=== PATIENT | female | born 1940 | race Caucasian/White ===

== ENCOUNTER 2016-06-18 09:05 | Day surgery (SDC) | payer BC ==
[~2016-06-18] VITALS: Ht 142.2 cm; Wt 75.4 kg
[2016-06-18] MEDS ORDERED: NS 1000P @30 MLS/HR (KVO) IV SCH (09:30)
[2016-06-18] MEDS ORDERED: MULT1CHW70 (09:34)
[2016-06-18] MEDS ORDERED: FENO130C PO (09:34)
[2016-06-18] MEDS ORDERED: NIFE15TA PO (09:34)
[2016-06-18] MEDS ORDERED: ALPR0.5T3 PO (09:34)
[2016-06-18] MEDS ORDERED: SIMV40TA PO (09:34)
[2016-06-18] MEDS ORDERED: VITA400C28 (09:34)
[2016-06-18] MEDS ORDERED: LOSA100T3 PO (09:34)
[2016-06-18] MEDS ORDERED: GLIM2TAB PO (09:34)
[2016-06-18 09:35] VITALS: BP 198/93; PULSE 92; RESP 20; TEMP 98.1; O2SAT 97
[2016-06-18] MEDS ORDERED: diphenhydrAMINE HCL 50 MG CAP PO SCH (09:45)
[2016-06-18 10:04] LABS: HEMATOCRIT 38.9 % (35.0-46.0); MEAN CELL VOLUME 86.7 FL (80.0-100.0); MEAN CORPUSCULAR HEMOGLOBIN 28.3 PG (27.0-34.0); MEAN CORPUSCULAR HGB CONC 32.7 % (32.0-36.0); PLATELET COUNT 254 TH/MM3 (150-450); RED BLOOD COUNT 4.48 MIL/MM3 (4.00-5.30); RED CELL DISTRIBUTION WIDTH 14.6 % (11.6-17.2); WHITE BLOOD COUNT 11.6 TH/MM3 (4.0-11.0)
[2016-06-18] MEDS ORDERED: HEPARIN-NS/PF INJ 500 ML ONE (10:04)
[2016-06-18 10:09] LABS: APTT (PATIENT) 21.7 SEC (24.3-30.1)
[2016-06-18] MEDS ORDERED: IOHEXOL 350 MG/ML 50 ML BTL (for Cath Lab) OTHER ONE (10:11)
[2016-06-18 10:18] LABS: HEMO FLAGS AUTO DIFF; POTASSIUM 4.2 MEQ/L (3.5-5.1)
[2016-06-18] MEDS ORDERED: MIDAZOLAM HCL 2 MG/2 ML VIAL ONE (10:19)
[2016-06-18 10:40] LABS: BANDS 2 % (0-6); EOSINOPHILS 3 % (0-4); NEUTROPHIL # MANUAL DIFF 5.8 TH/MM3 (1.8-7.7); POLYS (SEG NEUTROPHILS) 48 % (16-70); WBC DIFF SAMPLE 100
[2016-06-18 10:41] LABS: PLATELET ESTIMATE SMEAR NORMAL (NORMAL); PLATELET MORPHOLOGY NORMAL (NORMAL); SCAN/DIFF FINAL DIFF MANUAL
[2016-06-18] MEDS ORDERED: MISC INFORMATION XX ONE (11:15)
[2016-06-18] MEDS ORDERED: ONDANSETRON HCL 4 MG/2 ML VIAL IV PRN (11:15)
[2016-06-18] MEDS ORDERED: ATROPINE SULFATE 1 MG/ML VIAL IV PRN (11:15)
--- NOTE | 2016-06-18 12:03 | EKG ---
Date Performed: 06/18/2016 Time Performed: 09:53:32 PTAGE: 75 years EKG: Sinus rhythm with 1st degree A-V block Left anterior fascicular block Possible anteroseptal infarct - age undeter mined Left ventricular hypertrophy Lateral ST-T changes may be due to hypertrophy and/or ischemia Abn ormal ECG PREVIOUS TRACING : 10/05/2000 07.30 DOCTOR: Gio Rowe Interpretating Date/Time 06/18/2016 12:02:45
--- NOTE | 2016-06-18 12:06 | MA ---
cc: DANIEL GRAYSON DATE: 06/18/2016 1940 PROCEDURE PERFORMED 1. Left heart catheterization. 2. Selective right and left coronary angiography. 3. Right common femoral artery angiography, selective. INDICATION Severe symptomatic aortic stenosis/preoperative evaluation. DESCRIPTION OF PROCEDURE Consent was signed. The patient was brought into the cardiac manager labor relations in a fasting state. The right groin was prepped and draped in sterile fashion. Using 1% lidocaine for local anesthesia a micropuncture kit, a 5-Moldovan sheath was inserted into the right common femoral artery. Right common femoral artery angiography was performed to confirm position of the sheath. Then selective right and left coronary angiography was performed with a JR-4 and a JL-4 diagnostic catheters. Angiography was taken in multiple views. An AL-1 over a straight angle wire was introduced into the left ventricle followed by pressure recordings and pullback. The patient tolerated the procedure well without complications. Estimated blood loss was less than 30 ccs. Total contrast used was 75 ccs. The right groin access site was closed with a Vascade closure device. RESULTS LEFT VENTRICLE The left ventricular pressure was 199/18 with an LVEDP of 24, aortic pressure was 156/84 with a mean of 115. There was a significant gradient upon pullback from the left ventricle to the aorta of at least 35 mmHg. ANGIOGRAPHY 1. Right coronary artery is dominant, minimal luminal irregularities throughout. Nonobstructive coronary artery disease, PDA patent. 2. Left main patent with nonobstructive coronary artery disease. 3. LAD is a transapical vessel, it has minimal luminal irregularities throughout, nonobstructive coronary artery disease. He has patent three diagonal vessels. 4. Left circumflex artery is patent with NIK III flow was giving off two obtuse marginal branches which are patent with nonobstructive coronary artery disease. 5. Ramus vessel is patent with nonobstructive coronary artery disease. CONCLUSION 1. Normal coronary arteries/nonobstructing coronary artery disease. 2. Severe aortic stenosis. RECOMMENDATIONS The patient will be consulted to CT surgery for AVR. Continue aggressive medical management for primary prevention of CAD. Post cath care. Will also order pulmonary function test. Daniel Grayson MD AIRLINE CAPTAIN/TLL /11:15 AM /11:52 AM LESLY
[2016-06-18] MEDS ORDERED: PAPAVERINE INJ 60 MG, NITROGLYCERIN INJ 100 MCG, DILTIAZEM INJ 100 MG in SODIUM CHLORID... IRRIGATION SCH (12:30)
--- NOTE | 2016-06-18 13:57 | RADRPT ---
EXAM DATE/TIME: 06/18/2016 12:51 [facility] COMPARISON: CT THORAX W/O CONTRAST, June 18, 2016, 13:25. INDICATIONS : Pre op for AVR. MEDICAL HISTORY : None. SURGICAL HISTORY : None. ENCOUNTER: Initial ACUITY: 1 day PAIN SCORE: 0/10 LOCATION: Bilateral upper chest FINDINGS: There is minimal atelectasis in the left midlung. No evidence of effusion. Cardiomediastinal contours are satisfactory for technique and slight rotation. CONCLUSION: Minimal left lung atelectasis Dilan Garcia MD on June 18, 2016 at 13:54 Board Certified Radiologist. This report was verified electronically.
--- NOTE | 2016-06-18 14:08 | RADRPT ---
EXAM DATE/TIME: 06/18/2016 13:25 [facility] COMPARISON: No previous studies available for comparison. INDICATIONS : Pre-op aortic vavle replacement. Aortic calcifications. RADIATION DOSE: 6.56 CTDIvol (mGy) MEDICAL HISTORY : Cardiovascular disease. Hypertension. Diabetes SURGICAL HISTORY : None. ENCOUNTER: Initial ACUITY: 1 day PAIN SCALE: 0/10 LOCATION: chest TECHNIQUE: Volumetric scanning of the chest was performed. Using automated exposure control and adjustment of t he mA and/or kV according to patient size, radiation dose was kept as low as reasonably achievable to obtain optimal diagnostic quality images. FINDINGS: The visualized pulmonary parenchyma is clear. There is no pleural effusion. The heart is normal in size. There is mild calcification of the aortic annulus and valve leaflets. Th e coronaries arise in their typical location. There is atherosclerotic plaquing within the coronary a rteries. The aortic root measures 2.8 cm in diameter. There is minimal atherosclerotic plaquing of th e arch. The descending thoracic aorta is normal in caliber. There is no significant hilar or mediastinal adenopathy. The graft the exam does demonstrate a 1.4 cm low-attenuation lesion in the dome of the liver. This is nonspecific in appearance by CT There are advanced degenerative changes throughout the upper thoracic spine. CONCLUSION: 1. There is calcification of the valve leaflets and aortic anulus. This is mild in severity. 2. Aortic root measures 2.8 cm. The coronaries arise in the typical location. Chris Velarde MD on June 18, 2016 at 14:04 Board Certified Radiologist. This report was verified electronically.
--- NOTE | 2016-06-18 16:44 | PD.CAR.PN ---
CVT Progress Note Subjective/Hospital Course: sts data discussed with pt RISK SCORES About the STS Risk Calculator Procedure: AV Replacement Risk of Mortality: 3.007% Morbidity or Mortality: 16.179% Long Length of Stay: 7.565% Short Length of Stay: 32.885% Permanent Stroke: 1.424% Prolonged Ventilation: 10.984% DSW Infection: 0.247% Renal Failure: 3.66% Reoperation: 7.373% Objective: Vital Signs Date Time Temp Pulse Resp B/P Pulse Ox O2 Delivery O2 Flow Rate FiO2 06/18/16 11:10 96 Room Air 06/18/16 09:35 98.1 92 20 198/93 97 Labs: Laboratory Tests Test 06/18/16 09:32 White Blood Count 11.6 TH/MM3 (4.0-11.0) Red Blood Count 4.48 MIL/MM3 (4.00-5.30) Hemoglobin 12.7 GM/DL (11.6-15.3) Hematocrit 38.9 % (35.0-46.0) Mean Corpuscular Volume 86.7 FL (80.0-100.0) Mean Corpuscular Hemoglobin 28.3 PG (27.0-34.0) Mean Corpuscular Hemoglobin 32.7 % Concent (32.0-36.0) Red Cell Distribution Width 14.6 % (11.6-17.2) Platelet Count 254 TH/MM3 (150-450) Mean Platelet Volume 9.2 FL (7.0-11.0) Neutrophils (%) (Auto) % (16.0-70.0) Lymphocytes (%) (Auto) % (9.0-44.0) Monocytes (%) (Auto) % (0.0-8.0) Eosinophils (%) (Auto) % (0.0-4.0) Basophils (%) (Auto) % (0.0-2.0) Neutrophils # (Auto) TH/MM3 (1.8-7.7) Lymphocytes # (Auto) TH/MM3 (1.0-4.8) Monocytes # (Auto) TH/MM3 (0-0.9) Eosinophils # (Auto) TH/MM3 (0-0.4) Basophils # (Auto) TH/MM3 (0-0.2) CBC Comment AUTO DIFF Differential Total Cells 100 Counted Neutrophils % (Manual) 48 % (16-70) Band Neutrophils % 2 % (0-6) Lymphocytes % 39 % (9-44) Monocytes % 8 % (0-8) Eosinophils % 3 % (0-4) Neutrophils # (Manual) 5.8 TH/MM3 (1.8-7.7) Differential Comment FINAL DIFF MANUAL Platelet Estimate NORMAL (NORMAL) Platelet Morphology Comment NORMAL (NORMAL) Red Cell Morphology Comment NORMAL (NORMAL) Prothrombin Time 11.0 SEC (9.8-11.6) Prothromb Time International 1.0 RATIO Ratio Activated Partial 21.7 SEC Thromboplast Time (24.3-30.1) Sodium Level 141 MEQ/L (136-145) Potassium Level 4.2 MEQ/L (3.5-5.1) Chloride Level 106 MEQ/L (98-107) Carbon Dioxide Level 27.0 MEQ/L (21.0-32.0) Anion Gap 8 MEQ/L (5-15) Blood Urea Nitrogen 17 MG/DL (7-18) Creatinine 0.67 MG/DL (0.50-1.00) Estimat Glomerular Filtration 86 ML/MIN (>89) Rate Random Glucose 171 MG/DL (74-106) Calcium Level 9.7 MG/DL (8.5-10.1) Result Diagram: 06/18/16 0932 06/18/16 0932 Verena Davis Jun 18, 2016 16:44
[2016-06-18 16:56] LABS: HEMOGLOBIN A1a 1.1 %; HEMOGLOBIN Ao 82.7 %; HEMOGLOBIN LA1C 2.4 %; HEMOGLOBIN P3 4.2 %
--- NOTE | 2016-06-19 08:25 | MB ---
cc: TIN IRIZARRY PEDRO KHANNA, SOHIT K. MD BARTHOLOMEW, BETH A. 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 Chilango Weiner, primary care physician Dr. Tin Irizarry with a history of aortic stenosis. She has been evaluated and followed for the last 15 years. Apparently her only symptoms have just been some chronic fatigue. They have been monitoring her valves. She was supposed to undergo some type of bladder treatment for a history of prior bladder cancer with a followup cystoscopy, but because of some tachycardia they wanted a cardiology revaluation and we get her echocardiogram which showed worsening aortic stenosis. Her valve area is 0.74 cm, peak gradient 80 mmHg with a mean gradient of 43 with some transvalvular velocity increased consistent with severe stenosis, moderately restricted leaflet motion. Also some moderate regurgitation, trivial to mild mitral regurgitation, some trivial tricuspid regurgitation, EF of 77%. The patient was brought in electively for heart catheterization with nonobstructive coronary artery disease and we were consulted to evaluate for aortic valve replacement. PAST MEDICAL HISTORY 1. Nonobstructive coronary artery disease. 2. Some very mild carotid disease with minimal bilateral plaquing by ultrasound completed 05/06/2016. 3. Diabetes mellitus, on oral medications. 4. Hyperlipidemia. 5. Hypertension. 6. Obesity with a BMI of 37. 7. History of bladder cancer diagnosed in 2003, followed by Dr. Win Viera. She has had multiple cystoscopies and some type of bladder instillation, some type of liquid treatment. 8. 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 Sibley. 9. Also suffers from insomnia. 10. Appendectomy. ALLERGIES SULFA. HOME MEDICATIONS 1. Losartan/Hydrochlorothiazide 100/12.5 p.o. daily. 2. Xanax 0.5 p.o. q.8 p.r.n. for anxiety. 3. Nifedipine 60 p.o. daily. 4. Fenofibrate 130 mg p.o. daily. 5. Simvastatin 40 p.o. q.h.s. 6. Glimepiride 2 mg p.o. daily. FAMILY HISTORY Mother still alive at age 95, she had a valve replacement at age 85 and a pacemaker. Father's history is unknown. SOCIAL HISTORY The patient , three children. 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 Quit smoking 40 years ago. No alcohol. REVIEW OF SYSTEMS GENERAL: No night sweats, fever, heat and cold intolerance. SKIN: No psoriasis, itching or hives. HEENT: No blurred vision, hearing loss. RESPIRATORY: No cough, shortness of breath. CARDIOVASCULAR: No chest pain. No paroxysmal nocturnal dyspnea. No orthopnea. GASTROINTESTINAL: No diarrhea, vomiting. GENITOURINARY: No burning, frequency, urgency. MILITARY EQUIPMENT SPECIALIST: No history of TIA, CVA, seizure disorder. ENDOCRINOLOGY: Positive for diabetes. PHYSICAL EXAMINATION VITAL SIGNS: Blood pressure 190/90, heart rate of 92, temperature 98.1, room air sat 96%. GENERAL: The patient is awake, alert, in no acute distress. HEENT: Head is normocephalic, atraumatic. Pupils equal and reactive. Oral mucosa pink, moist. NECK: Supple. No JVD. CARDIOVASCULAR: Heart sounds S1, S2. Regular rate and rhythm. No rubs, gallops. Positive for a 2/6 systolic ejection murmur. LUNGS: Clear to auscultation. No wheezes, rales or rhonchi. ABDOMEN: Obese, soft, nontender. EXTREMITIES: No cyanosis, clubbing or edema. LABORATORY WORK Hemoglobin 12, hematocrit of 38, white cell count of 11.6, platelet count of 254. Sodium 141, potassium 4.2, BUN of 17, creatinine 0.67, glucose random 171. Hemoglobin A1c is pending. INR 1.0. MRSA screen pending. IMAGING Chest CT shows some calcification in the valve leaflets and aortic annulus mild in severity. Aortic root measures 2.8. Coronaries arise in typical location. There is a 1.4 cm low-attentuation lesion in the dome of the liver nonspecific in appearance by CT. IMPRESSION This is a very pleasant 75-year-old patient of Dr. Chilango Weiner, history of aortic stenosis valve area of 0.74, currently a asymptomatic. However, the patient was turned down for repeat bladder surgery in regards to her worsening aortic stenosis. PLAN Procedures, alternatives and risks have been discussed with the patient in regards to aortic valve replacement. Her CT has been evaluated by Dr. Nathaniel Gilliland. Plan will be for possible mini-aortic valve replacement using a small sternotomy approach secondary to her history of right radical mastectomy. At this time the patient would like to speak with her son and discuss timing for surgery and then make decision upon when to consider her surgical treatment date. STS data has been discussed and documented in the electronic record, and we will await her return either per the office or notifying us for scheduling. Dictated by BROOKS Hernandez Nathaniel APODACA/BJF /4:48 PM /8:16 AM
--- NOTE | 2016-07-01 09:24 | RSPPFT ---
DATE OF PROCEDURE: 06/18/16 COMMENTS: Spirometry shows FEV1 at 43% of predicted, FVC at 38% indicating decreased FVC. No reversibility noted after use of bronchodilator. IMPRESSION: 1. No evidence of airways obstruction. 2. Patient does have decreased FVC which could imply restriction or could be due to obesity.
== END 2016-06-18 16:06 | disposition home or self-care (01) ==
LOC: HDOC 09:05 → HDIC 09:05 → HDOC 16:06
PROVIDERS: ATTEND Radiology Vascular & Interventional Radiology
DX: I35.0 Nonrheumatic aortic (valve) stenosis (principal); I25.10 Atherosclerotic heart disease of native coronary artery without angina pectoris; I10 Essential (primary) hypertension; E11.9 Type 2 diabetes mellitus without complications; E78.5 Hyperlipidemia, unspecified; E66.9 Obesity, unspecified; Z68.37 Body mass index [BMI] 37.0-37.9, adult; Z87.891 Personal history of nicotine dependence; Z88.2 Allergy status to sulfonamides; Z90.11 Acquired absence of right breast and nipple; Z01.818 Encounter for other preprocedural examination; Z85.51 Personal history of malignant neoplasm of bladder; Z79.01 Long term (current) use of anticoagulants
CPT/HCPCS: 71010; 71250; 80048; 83036; 85007; 85027; 85610; 85730; 87641; 93005; 93454; 94010; C1760; C1769; C1893; G0269; J1644; J2250; J3010; J7030; Q0163; Q9967

== ENCOUNTER 2016-09-19 09:28 | Observation (INO) | payer BC ==
[~2016-09-19] VITALS: Ht 142.2 cm; Wt 79.7 kg
[~2016-09-19 09:28] MED LIST: ALPR0.5T3 PO; FENO130C PO; GLIM2TAB PO; LOSA100T3 PO; MULT1CHW70; NIFE15TA PO; SIMV40TA PO; VITA400C28
[2016-09-19 09:31] VITALS: BP 144/87; PULSE 103; RESP 16; TEMP 97.9; O2SAT 96
[2016-09-19] MEDS ORDERED: NIFE60TA8 PO (09:52)
--- NOTE | 2016-09-19 10:12 | PD ---
HPI Chief Complaint: Abdominal Pain Time Seen by Provider: 09:56 Travel History International Travel<30 days: No Contact w/Intl Traveler<30days: No Traveled to known affect area: No History of Present Illness HPI The patient was seen and examined in the presence of the nurse. She complains of abdominal pain. Duration is 3 days. Severity is moderate. Location is right lower quadrant. She has no vomiting or diarrhea or fever. She had a bowel movement 2 days ago. She has had an appendectomy. She has history of bladder cancer. She is diabetic PFSH Past Medical History Anxiety: Yes Cancer: Yes (BLADDER) Cardiovascular Problems: Yes Diabetes: Yes Patient Takes Glucophage: No Hypertension: Yes Influenza Vaccination: No ?: Not Social History Alcohol Use: No Tobacco Use: No Substance Use: No Allergies-Medications (Allergen,Severity, Reaction): Coded Allergies: Sulfa (Verified Allergy, Unknown, 09/19/16) Reported Meds & Prescriptions Reported Meds & Active Scripts Active Reported Nifedipine ER 24 HR (Nifedipine) 60 Mg Tab 1 Tab PO DAILY Vitamin D (Cholecalciferol) 400 Unit Cap Simvastatin 40 Mg Tab 40 Mg PO HS Losartan-Hydrochlorothiazide 100-12.5 Mg Tab 1 Tab PO DAILY Glimepiride 2 Mg Tab 2 Mg PO DAILY Take with breakfast or first main meal Fenofibrate Micronized 130 Mg Cap 130 Mg PO DAILY Alprazolam 0.5 Mg Tab 0.5 Mg PO Q8H PRN Review of Systems General / Constitutional: No: Fever Eyes: No: Visual changes HENT: No: Headaches Cardiovascular: No: Chest Pain or Discomfort Respiratory: No: Shortness of Breath Gastrointestinal: Positive: Abdominal Pain Genitourinary: No: Dysuria Musculoskeletal: No: Pain Skin: No Rash Neurologic: No: Weakness Psychiatric: No: Depression Endocrine: No: Polydipsia Hematologic/Lymphatic: No: Easy Bruising Physical Exam Narrative GENERAL: Well-nourished, well-developed patient with right lower quadrant pain. SKIN: Focused skin assessment reveals no rash and nodules. Skin is Warm and dry. HEAD: Atraumatic. Normocephalic. EYES: Pupils equal and round. No scleral icterus. No injection or drainage. ENT: No nasal bleeding or discharge. Mucous membranes pink and moist. NECK: Trachea midline. No JVD. CARDIOVASCULAR: Regular rate and rhythm. No murmur appreciated. RESPIRATORY: No accessory muscle use. Clear to auscultation. Breath sounds equal bilaterally. GASTROINTESTINAL: Abdomen soft, right lower quadrant is tender but no rebound or guarding, nondistended. Hepatic and splenic margins not palpable. MUSCULOSKELETAL: No obvious deformities. No clubbing. No cyanosis. No edema. NEUROLOGICAL: Awake and alert. No obvious cranial nerve deficits. Motor grossly within normal limits. Normal speech. PSYCHIATRIC: Appropriate mood and affect; insight and judgment normal. Data Data Last Documented VS Vital Signs Date Time Temp Pulse Resp B/P Pulse Ox O2 Delivery O2 Flow Rate FiO2 09/19/16 10:33 96 16 178/68 97 Room Air 09/19/16 09:31 97.9 Orders Complete Blood Count With Diff (09/19/16 10:04) Comprehensive Metabolic Panel (09/19/16 10:04) Lipase (09/19/16 10:04) Prothrombin Time / Inr (Pt) (09/19/16 10:04) Act Partial Throm Time (Ptt) (09/19/16 10:04) Urinalysis - C+S If Indicated (09/19/16 10:04) Ondansetron Inj (Zofran Inj) (09/19/16 10:15) Sodium Chloride 0.9% Flush (Ns Flush) (09/19/16 10:15) Morphine Inj (Morphine Inj) (09/19/16 10:30) Ct Abd/Pel W/O Iv Contrast (09/19/16 ) Urinary Catheter Insert/Apply (09/19/16 11:04) Admit Order (Ed Use Only) (09/19/16 12:04) Admit Order (Ed Use Only) (09/19/16 12:07) Labs Laboratory Tests Test 09/19/16 09/19/16 10:00 10:20 Urine Collection Type CLEAN CATCH Urine Color YELLOW Urine Turbidity SLIGHT Urine pH 5.5 Urine Specific [place] 1.021 Urine Protein NEG mg/dL Urine Glucose (UA) NEG mg/dL Urine Ketones NEG mg/dL Urine Occult Blood NEG Urine Nitrite NEG Urine Bilirubin NEG Urine Leukocyte Esterase NEG Urine WBC 3-5 /hpf Urine Squamous Epithelial > 8 /hpf Cells Urine Bacteria OCC /hpf Microscopic Urinalysis Comment CULT NOT INDICATED Urine Collection Time 10:00 White Blood Count 10.3 TH/MM3 Red Blood Count 4.37 MIL/MM3 Hemoglobin 12.5 GM/DL Hematocrit 37.3 % Mean Corpuscular Volume 85.5 FL Mean Corpuscular Hemoglobin 28.7 PG Mean Corpuscular Hemoglobin 33.6 % Concent Red Cell Distribution Width 13.3 % Platelet Count 287 TH/MM3 Mean Platelet Volume 7.9 FL Neutrophils (%) (Auto) 63.4 % Lymphocytes (%) (Auto) 20.4 % Monocytes (%) (Auto) 9.5 % Eosinophils (%) (Auto) 3.1 % Basophils (%) (Auto) 3.6 % Neutrophils # (Auto) 6.5 TH/MM3 Lymphocytes # (Auto) 2.1 TH/MM3 Monocytes # (Auto) 1.0 TH/MM3 Eosinophils # (Auto) 0.3 TH/MM3 Basophils # (Auto) 0.4 TH/MM3 CBC Comment DIFF FINAL Differential Comment Prothrombin Time 11.1 SEC Prothromb Time International 1.0 RATIO Ratio Activated Partial 30.4 SEC Thromboplast Time Sodium Level 138 MEQ/L Potassium Level 3.4 MEQ/L Chloride Level 102 MEQ/L Carbon Dioxide Level 21.9 MEQ/L Anion Gap 14 MEQ/L Blood Urea Nitrogen 67 MG/DL Creatinine 3.30 MG/DL Estimat Glomerular Filtration 14 ML/MIN Rate Random Glucose 119 MG/DL Calcium Level 9.5 MG/DL Total Bilirubin 0.5 MG/DL Aspartate Amino Transf 29 U/L (AST/SGOT) Alanine Aminotransferase 30 U/L (ALT/SGPT) Alkaline Phosphatase 79 U/L Total Protein 8.2 GM/DL Albumin 3.7 GM/DL Lipase 220 U/L [facility] Medical Decision Making Medical Screen Exam Complete: Yes Emergency Medical Condition: Yes Medical Record Reviewed: Yes Differential Diagnosis Colitis, ileus, obstruction Narrative Course I have reviewed the patient's electronic medical record. Patient was hospitalized in June 2016 and I reviewed her cardiac catheterization IV placed CBC is normal metabolic profile shows a new-onset of renal failure with creatinine of 3.3 LFT's are normal lipase is normal Urinalysis is clean CT of abdomen and pelvis shows some nonspecific right groin inflammatory changes of unclear significance. There are some other incidental findings as noted I gave her dose of IV morphine and IV Zofran for symptom relief Urinary catheter was placed prior to CT which revealed urinary retention. 1400 cc of yellow urine was drained Did give the patient some relief and may explain her abdominal pain However there is no hydronephrosis to blame the renal failure on. I discussed with hospitalist. She is admitted for new onset of renal failure and also urinary retention without hydronephrosis. Diagnosis Primary Impression: Renal failure Qualified Code: N17.9 - Acute renal failure, unspecified acute renal failure type Additional Impression: Acute urinary retention Admitting Information Admitting Physician Requests: Admit Jose E Mai MD Sep 19, 2016 10:12
[2016-09-19] MEDS ORDERED: ONDANSETRON HCL 4 MG/2 ML VIAL IVP ONE (10:15)
[2016-09-19] MEDS ORDERED: SODIUM CHLORIDE 0.9% FLUSH 10 ML FLUSH IV FLUSH PRN ×2 (10:15→12:30)
[2016-09-19] MEDS ORDERED: MORPHINE SULFATE 4 MG/ML INJ IV PUSH ONE (10:15)
[2016-09-19 10:28] LABS: AUTOMATED NEUTROPHIL # 6.5 TH/MM3 (1.8-7.7); BASOPHIL # 0.4 TH/MM3 (0-0.2); BASOPHIL % 3.6 % (0.0-2.0); EOSINOPHIL # 0.3 TH/MM3 (0-0.4); EOSINOPHIL % 3.1 % (0.0-4.0); HEMATOCRIT 37.3 % (35.0-46.0); HEMO FLAGS DIFF FINAL; LYMPH % 20.4 % (9.0-44.0); LYMPHOCYTE # 2.1 TH/MM3 (1.0-4.8); MEAN CELL VOLUME 85.5 FL (80.0-100.0); MEAN CORPUSCULAR HEMOGLOBIN 28.7 PG (27.0-34.0); MEAN CORPUSCULAR HGB CONC 33.6 % (32.0-36.0); MONO % 9.5 % (0.0-8.0); NEUT % 63.4 % (16.0-70.0); PLATELET COUNT 287 TH/MM3 (150-450); RED BLOOD COUNT 4.37 MIL/MM3 (4.00-5.30); RED CELL DISTRIBUTION WIDTH 13.3 % (11.6-17.2); WHITE BLOOD COUNT 10.3 TH/MM3 (4.0-11.0)
[2016-09-19] MEDS ORDERED: MORPHINE SULFATE 8 MG/ML INJ IV PUSH ONE (10:30)
[2016-09-19 10:33] VITALS: BP 178/68; PULSE 96; RESP 16; O2SAT 97
[2016-09-19 10:33] LABS: BLOOD, URINE NEG (NEG); GLUCOSE,URINE NEG (NEG); KETONE, URINE NEG (NEG); NITRITE,URINE NEG (NEG); PH, URINE 5.5 (5.0-8.5)
[2016-09-19 10:38] LABS: METHOD OF COLLECTION CLEAN CATCH; URINE COLOR YELLOW (YELLW/STRAW)
[2016-09-19 10:39] LABS: CHLORIDE 102 MEQ/L (98-107); POTASSIUM 3.4 MEQ/L (3.5-5.1); SODIUM (NA) 138 MEQ/L (136-145)
[2016-09-19 10:39] LABS: BACTERIA, URINE OCC /hpf; COMMENT (UR) CULT NOT INDICATED; CULTURE IF INDICATED CULT NOT INDICATED; SQUAMOUS EPITHELIAL CELL URINE > 8 /hpf (0-5)
[2016-09-19 10:43] LABS: ANION GAP 14 MEQ/L (5-15); BICARBONATE 21.9 MEQ/L (21.0-32.0); BLOOD UREA NITROGEN 67 MG/DL (7-18)
[2016-09-19 10:44] LABS: APTT (PATIENT) 30.4 SEC (24.3-30.1); PROTHROMBIN TIME - PATIENT 11.1 SEC (9.8-11.6)
[2016-09-19 10:46] LABS: ALT (GPT) 30 U/L (10-53); AST (GOT) 29 U/L (15-37); GLOMERULAR FILTRATION RATE 14 ML/MIN (>89)
[2016-09-19 10:48] LABS: TOTAL BILIRUBIN ADULT 0.5 MG/DL (0.2-1.0)
[2016-09-19 10:49] LABS: ALKALINE PHOSPHATASE 79 U/L (45-117)
--- NOTE | 2016-09-19 11:39 | RADRPT ---
EXAM DATE/TIME: 09/19/2016 11:12 [facility] COMPARISON: No previous studies available for comparison. INDICATIONS : Right lower quadrant pain x days. ORAL CONTRAST: No oral contrast ingested. RADIATION DOSE: 18.06 CTDIvol (mGy) MEDICAL HISTORY : Carcinoma, bladder. Diabetes mellitus type 2. Hypertension. SURGICAL HISTORY : Appendectomy. ENCOUNTER: Initial ACUITY: 3 days PAIN SCALE: 9/10 LOCATION: Right lower quadrant TECHNIQUE: Volumetric scanning of the abdomen and pelvis was performed. Using automated exposure control and ad justment of the mA and/or kV according to patient size, radiation dose was kept as low as reasonably achievable to obtain optimal diagnostic quality images. DICOM format image data is available electro nically for review and comparison. The lack of IV contrast limits the diagnosis for certain organ pat hology. FINDINGS: LOWER LUNGS: The visualized lower lungs are clear. LIVER: Homogeneous density without lesion. There is diffuse fatty infiltration throughout the liver. There is no dilation of the biliary tree. No calcified gallstones. SPLEEN: Normal size without lesion. PANCREAS: Within normal limits. KIDNEYS: Normal in size and shape. There is no mass, stone, or hydronephrosis. Bilateral extrarenal pelves. T here is a benign cyst along the mid to lower pole left kidney measuring 4.8 cm. ADRENAL GLANDS: Within normal limits. VASCULAR: There is no aortic aneurysm. Atherosclerotic changes. BOWEL/MESENTERY: The stomach, small bowel, and colon demonstrate no acute abnormality. There is no free intraperitone al air or fluid. Scattered diverticulosis throughout the colon. No definite inflammatory changes are seen. ABDOMINAL WALL: Within normal limits. RETROPERITONEUM: There is no lymphadenopathy. BLADDER: Nichols catheter in the bladder. The bladder is decompressed. REPRODUCTIVE: Within normal limits. INGUINAL: There is no lymphadenopathy or hernia. There is a nonspecific soft tissue changes in the right groin. MUSCULOSKELETAL: Within normal limits for patient age. CONCLUSION: 1. Diffuse fatty infiltration of the liver. 2. Benign left renal cyst measuring 4.8 cm. 3. Diffuse diverticulosis of the entire colon. 4. Nonspecific soft tissue or inflammatory changes in the subcutaneous soft tissues of the right groi n. 5. No calcified renal stones or hydronephrosis. Bilateral extrarenal pelves. Maninder Martel MD on September 19, 2016 at 11:31 Board Certified Radiologist. This report was verified electronically.
[2016-09-19] MEDS ORDERED: SENNOSIDES 8.6 MG TAB PO PRN (12:30)
[2016-09-19] MEDS ORDERED: LACTULOSE SYRUP 20 GM/30 ML CUP PO PRN (12:30)
[2016-09-19] MEDS ORDERED: BISACODYL 10 MG SUPP RECTAL PRN (12:30)
[2016-09-19] MEDS ORDERED: ONDANSETRON HCL 4 MG/2 ML VIAL IVP PRN (12:30)
[2016-09-19] MEDS ORDERED: NALOXONE HCL 0.4 MG/ML AMP IV PRN (12:30)
[2016-09-19] MEDS ORDERED: POTASSIUM CHLORIDE 20 MEQ CONTROLLED RELEASE TAB PO SCH (12:30)
[2016-09-19] MEDS ORDERED: MAGNESIUM HYDROXIDE SUSP 30 ML CUP PO PRN (12:30)
[2016-09-19] MEDS: SODIUM CHLOR 0.9% 1000 ML INJ 1,000 ML IV SCH ×2 (13:05→22:34)
[2016-09-19] MEDS: HEPARIN SODIUM - SQ 10,000 UNITS/ML VIAL SQ SCH ×2 (13:08→22:33)
[2016-09-19 13:11] VITALS: BP 108/56; PULSE 92; RESP 18; O2SAT 95
[2016-09-19 15:03] VITALS: BP 111/67; PULSE 91; RESP 20; TEMP 97.3; O2SAT 94
[2016-09-19 16:00] VITALS: BP 140/65; PULSE 85; RESP 20; TEMP 97.3; O2SAT 94
--- NOTE | 2016-09-19 16:45 | PD.CONS ---
[facility] Service Nephrology Consult Requested By Reason for Consult Acute renal failure Primary Care Physician Yanelis Irizarry M.D. History of Present Illness This is a very plesant 76 y/o female patient. She came in for evaluation of right sided abdominal pain that had been worsening for 3 days. It began to radiate around the front of her abdomen. PMH listed below includes HTN, severe , bladder CA and is followed by urology. She tried Tylenol, antacids, and laxatives prior to coming to the ER, denies use of NSAIDs for pain relief. Her admission labs were abnormal for the following: creatinine 3.3, BUN 67, and K 3.3. She had a Nichols placed and approximately 1400 ml urine was returned. 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 Her UA is benign aside from squamous epithelial cells. She has IVF infusing, reportedly lost her appetite due to pain and fluid intake was not optimal. We were consulted for renal management. (Yesy Mcneill) Review of Systems Constitutional: DENIES: Fatigue Cardiovascular: DENIES: Chest pain, Dyspnea on Exertion, Lower Extremity Edema Gastrointestinal: COMPLAINS OF: Abdominal pain, DENIES: Nausea, Vomiting, Anorexia Genitourinary: DENIES: Urinary frequency, Urinary incontinence, Urgency, Dysuria Musculoskeletal: DENIES: Joint pain (Yesy Mcneill) Past Family Social History Allergies: Coded Allergies: Sulfa (Verified Allergy, Unknown, 09/19/16) Past Medical History HTN Hyperlipidemia Hx bladder Cancer DM II severe insomnia Past Surgical History appendectomy multiple cystoscopies with bladder biopsy Reported Medications Nifedipine ER 24 HR (Nifedipine) 60 Mg Tab 1 Tab PO DAILY Vitamin D (Cholecalciferol) 400 Unit Cap Simvastatin 40 Mg Tab 40 Mg PO HS Losartan-Hydrochlorothiazide 100-12.5 Mg Tab 1 Tab PO DAILY Glimepiride 2 Mg Tab 2 Mg PO DAILY Take with breakfast or first main meal Fenofibrate Micronized 130 Mg Cap 130 Mg PO DAILY Alprazolam 0.5 Mg Tab 0.5 Mg PO Q8H PRN Active Ordered Medications Current Medications Medications (Trade) Dose Ordered Sig/Milagros Route Start Time Stop Time Status Last Admin (NS 1000 ml Inj) 1,000 ml @ 100 mls/hr Q10H IV 09/19/16 12:24 09/19/16 13:05 (NS Flush) 2 ml UNSCH PRN IV FLUSH 09/19/16 12:30 (NS Flush) 2 ml BID IV FLUSH 09/19/16 21:00 (Zofran Inj) 4 mg Q6H PRN IVP 09/19/16 12:30 (Heparin Inj) 5,000 units DAILY@11,23 SQ 09/19/16 12:30 09/19/16 13:08 (Narcan Inj) 0.4 mg UNSCH PRN IV 09/19/16 12:30 (Michelle-Colace) 1 tab BID PO 09/19/16 21:00 (Milk Of Magnesia Liq) 30 ml Q12H PRN PO 09/19/16 12:30 (Senokot) 17.2 mg Q12H PRN PO 09/19/16 12:30 (Dulcolax Supp) 10 mg DAILY PRN RECTAL 09/19/16 12:30 (Lactulose Liq) 30 ml DAILY PRN PO 09/19/16 12:30 (KCl) 20 meq Q12HR PO 09/19/16 12:30 09/19/16 13:06 Family History No hx of renal disorders Social History , lives with no smoking hx, denies ETOH use ambulates and is independent with ADLs 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 Skin is Warm and dry. HEAD: Atraumatic. Normocephalic. EYES: Pupils equal and round. No scleral icterus. No injection or drainage. ENT: No nasal bleeding or discharge. Mucous membranes pink and moist. NECK: Trachea midline. No JVD. CARDIOVASCULAR: Regular rate and rhythm. II/ systolic murmur. No edema to lower extremities. RESPIRATORY: No accessory muscle use. Clear to auscultation. Breath sounds equal bilaterally. GASTROINTESTINAL: Abdomen soft, right lower quadrant is tender but no rebound or guarding, nondistended. Hepatic and splenic margins not palpable. MUSCULOSKELETAL: No obvious deformities. No clubbing. No cyanosis. No edema. NEUROLOGICAL: Awake and alert. No obvious cranial nerve deficits. Motor grossly within normal limits. Normal speech. PSYCHIATRIC: Appropriate mood and affect; insight and judgment normal. Laboratory Laboratory Tests Test 09/19/16 09/19/16 10:00 10:20 Urine Collection Type CLEAN CATCH Urine Color YELLOW Urine Turbidity SLIGHT Urine pH 5.5 Urine Specific [place] 1.021 Urine Protein NEG Urine Glucose (UA) NEG Urine Ketones NEG Urine Occult Blood NEG Urine Nitrite NEG Urine Bilirubin NEG Urine Leukocyte Esterase NEG Urine WBC 3-5 Urine Squamous Epithelial > 8 Cells Urine Bacteria OCC Microscopic Urinalysis Comment CULT NOT INDICATED Urine Collection Time 10:00 White Blood Count 10.3 Red Blood Count 4.37 Hemoglobin 12.5 Hematocrit 37.3 Mean Corpuscular Volume 85.5 Mean Corpuscular Hemoglobin 28.7 Mean Corpuscular Hemoglobin 33.6 Concent Red Cell Distribution Width 13.3 Platelet Count 287 Mean Platelet Volume 7.9 Neutrophils (%) (Auto) 63.4 Lymphocytes (%) (Auto) 20.4 Monocytes (%) (Auto) 9.5 Eosinophils (%) (Auto) 3.1 Basophils (%) (Auto) 3.6 Neutrophils # (Auto) 6.5 Lymphocytes # (Auto) 2.1 Monocytes # (Auto) 1.0 Eosinophils # (Auto) 0.3 Basophils # (Auto) 0.4 CBC Comment DIFF FINAL Differential Comment Prothrombin Time 11.1 Prothromb Time International 1.0 Ratio Activated Partial 30.4 Thromboplast Time Sodium Level 138 Potassium Level 3.4 Chloride Level 102 Carbon Dioxide Level 21.9 Anion Gap 14 Blood Urea Nitrogen 67 Creatinine 3.30 Estimat Glomerular Filtration 14 Rate Random Glucose 119 Calcium Level 9.5 Total Bilirubin 0.5 Aspartate Amino Transf 29 (AST/SGOT) Alanine Aminotransferase 30 (ALT/SGPT) Alkaline Phosphatase 79 Total Protein 8.2 Albumin 3.7 Lipase 220 (Yesy Mcneill) Result Diagram: 09/19/16 1020 09/19/16 1020 Imaging Last 72 hours Impressions Abdomen/Pelvis CT 09/19/16 0000 Signed Impressions: Service Date/Time: Monday, September 19, 2016 11:12 - CONCLUSION: 1. Diffuse fatty infiltration of the liver. 2. Benign left renal cyst measuring 4.8 cm. 3. Diffuse diverticulosis of the entire colon. 4. Nonspecific soft tissue or inflammatory changes in the subcutaneous soft tissues of the right groin. 5. No calcified renal stones or hydronephrosis. Bilateral extrarenal pelves. Maninder Martel MD (Yesy Mcneill) Assessment and Plan Problem List: (1) Renal failure Plan: In june her creatinine was 0.67, GFR 86 SAJI from obstructive uropathy/urinary retention imaging does not show hydronephrosis K 3.3, replacement ordered, recheck tomorrow; daily replacement likely not needed tolerating oral fluids now but intake was suboptimal for several days; reduce IVF to 50 cc/hr until tomorrow then stop avoid nephrotoxic medications repeat renal panel in the morning (2) Acute urinary retention Plan: begin flomax voiding trial tomorrow, may need urology evaluation no bladder mass visualized on imaging (3) DM II (diabetes mellitus, type II), controlled Plan: monitor glucose goal 140-180 mg/dL (Yesy Mcneill) Assessment and Plan patient was seen and examined. SAJI likely due to urinary retention. Unclear why she developed urinary retention. Flomax not useful in a female. Expect renal function to improve. (Juan Miguel Yi MD) Problem Qualifiers (1) Renal failure: Qualified Code: N17.9 - Acute renal failure, unspecified acute renal failure type Yesy Mcneill Sep 19, 2016 16:45 Juan Miguel Yi MD Sep 19, 2016 17:31
[2016-09-19] MEDS ORDERED: TAMSULOSIN HCL 0.4 MG CAP PO SCH (17:00)
[2016-09-19 20:16] VITALS: BP 105/58; PULSE 85; RESP 16; TEMP 98.6; O2SAT 90
[2016-09-19] MEDS: DOCUSATE SODIUM 50 MG/SENNA 8.6 MG TAB PO SCH (22:32)
[2016-09-19] MEDS: SODIUM CHLORIDE 0.9% FLUSH 10 ML FLUSH IV FLUSH SCH (22:32)
[2016-09-20 01:13] VITALS: BP 112/64; PULSE 80; RESP 14; TEMP 98.6; O2SAT 91
[2016-09-20 06:32] LABS: AUTOMATED NEUTROPHIL # 4.3 TH/MM3 (1.8-7.7); BASOPHIL % 0.5 % (0.0-2.0); EOSINOPHIL # 0.4 TH/MM3 (0-0.4); EOSINOPHIL % 5.1 % (0.0-4.0); HEMATOCRIT 34.5 % (35.0-46.0); HEMO FLAGS DIFF FINAL; LYMPH % 27.7 % (9.0-44.0); LYMPHOCYTE # 2.1 TH/MM3 (1.0-4.8); MEAN CELL VOLUME 85.4 FL (80.0-100.0); MEAN CORPUSCULAR HEMOGLOBIN 28.5 PG (27.0-34.0); MEAN CORPUSCULAR HGB CONC 33.3 % (32.0-36.0); MONO % 9.6 % (0.0-8.0); NEUT % 57.1 % (16.0-70.0); PLATELET COUNT 267 TH/MM3 (150-450); RED BLOOD COUNT 4.04 MIL/MM3 (4.00-5.30); RED CELL DISTRIBUTION WIDTH 13.5 % (11.6-17.2); WHITE BLOOD COUNT 7.5 TH/MM3 (4.0-11.0)
[2016-09-20 06:45] LABS: POTASSIUM 3.5 MEQ/L (3.5-5.1)
[2016-09-20 06:52] LABS: BICARBONATE 27.2 MEQ/L (21.0-32.0)
[2016-09-20 08:00] VITALS: BP 142/71; PULSE 81; RESP 17; TEMP 98; O2SAT 95
[2016-09-20] MEDS: DOCUSATE SODIUM 50 MG/SENNA 8.6 MG TAB PO SCH ×2 (08:43→20:03)
[2016-09-20] MEDS: SODIUM CHLORIDE 0.9% FLUSH 10 ML FLUSH IV FLUSH SCH ×2 (09:00→20:03)
[2016-09-20] MEDS ORDERED: NIFEdipine 60 MG SUSTAINED RELEASE TAB PO SCH (10:45)
[2016-09-20] MEDS: NIFEdipine 30 MG SUSTAINED RELEASE TAB PO SCH (11:33)
[2016-09-20] MEDS: HEPARIN SODIUM - SQ 10,000 UNITS/ML VIAL SQ SCH ×2 (11:33→21:38)
[2016-09-20] MEDS: FENOFIBRATE 145 MG TAB PO SCH (11:33)
[2016-09-20 12:00] VITALS: BP 132/78; PULSE 79; RESP 18; TEMP 98.1; O2SAT 96
--- NOTE | 2016-09-20 12:20 | HHI.HP ---
HPI Service [facility] Primary Care Physician Yanelis Irizarry M.D. Admission Diagnosis new onset renal failure, urinary retention without hydro,abd pain Diagnoses: Travel History International Travel<30 Days: No Contact w/Intl Traveler <30 Da: No Traveled to Known Affected Are: No History of Present Illness This is a very pleasant 76-year-old female patient of Dr. Irizarry. She also has seen Dr. Viera for bladder cancer and was subsequently referred to the [facility] in [facility]. She has a problem with aortic stenosis for which she is due to have open heart surgery. She came into the emergency department at [facility] last night with right abdominal pain that has been getting worse over the last 3 days. This was continuous nagging also radiating from the front of her abdomen to the other side. She also was in urinary retention. This was resolved after the insertion of a Nichols catheter. 1400 mL of urine were obtained. The catheter was left in. Patient denies any use of nonsteroidal anti-inflammatory drugs. She has brought appetite. Her arrival creatinine was 3.3. This morning creatinine came down to 1.4. This morning she was seen by the undersigned in room 8316. Her abdominal pain has still been resolved. She feels much better. She also go home. Already been seen by management internship Dr. Yi. Review of Systems Other 10 systems reviewed and negative except for the above Past Family Social History Past Medical History Diabetes Hypertension Aortic stenosis Bladder cancer Past Surgical History Appendicectomy Multiple cystoscopies Reported Medications Reported Meds & Active Scripts Active Reported Nifedipine ER 24 HR (Nifedipine) 60 Mg Tab 1 Tab PO DAILY Vitamin D (Cholecalciferol) 400 Unit Cap Simvastatin 40 Mg Tab 40 Mg PO HS Losartan-Hydrochlorothiazide 100-12.5 Mg Tab 1 Tab PO DAILY Glimepiride 2 Mg Tab 2 Mg PO DAILY Take with breakfast or first main meal Fenofibrate Micronized 130 Mg Cap 130 Mg PO DAILY Alprazolam 0.5 Mg Tab 0.5 Mg PO Q8H PRN Allergies: Coded Allergies: Sulfa (Verified Allergy, Unknown, 09/19/16) Family History Reviewed but noncontributory Social History smoking, no excessive alcohol, no illicit drug use Physical Exam Vital Signs Vital Signs Date Time Temp Pulse Resp B/P Pulse Ox O2 Delivery O2 Flow Rate FiO2 09/20/16 08:00 98.0 81 17 142/71 95 09/20/16 01:13 98.6 80 14 112/64 91 09/19/16 20:16 98.6 85 16 105/58 90 09/19/16 16:00 97.3 85 20 140/65 94 09/19/16 15:03 97.3 91 20 111/67 94 09/19/16 13:11 92 18 108/56 95 Room Air Physical Exam GENERAL: This is a pleasant, obese , well-developed patient, in no apparent distress. SKIN: No rashes, ecchymoses or lesions. Cool and dry. HEAD: Atraumatic. Normocephalic. No temporal or scalp tenderness. EYES: Pupils equal round and reactive. Extraocular motions intact. No scleral icterus. No injection or drainage. ENT: Nose without bleeding, purulent drainage or septal hematoma. Throat without erythema, tonsillar hypertrophy or exudate. Uvula midline. Airway patent. NECK: Trachea midline. No JVD or lymphadenopathy. Supple, nontender, no meningeal signs. CARDIOVASCULAR: Regular rate and rhythm without murmurs, gallops, or rubs. RESPIRATORY: Clear to auscultation. Breath sounds equal bilaterally. No wheezes , rales, or rhonchi. GASTROINTESTINAL: Abdomen soft, non-tender, nondistended. No hepato-splenomegaly , or palpable masses. No guarding. MUSCULOSKELETAL: Extremities without clubbing, cyanosis, but has bilateral ankle edema. NEUROLOGICAL: Awake and alert. Cranial nerves II through XII intact. Motor and sensory grossly within normal limits. Five out of 5 muscle strength in all muscle groups. Normal speech. Laboratory Laboratory Tests Test 09/20/16 06:03 White Blood Count 7.5 Red Blood Count 4.04 Hemoglobin 11.5 Hematocrit 34.5 Mean Corpuscular Volume 85.4 Mean Corpuscular Hemoglobin 28.5 Mean Corpuscular Hemoglobin 33.3 Concent Red Cell Distribution Width 13.5 Platelet Count 267 Mean Platelet Volume 7.8 Neutrophils (%) (Auto) 57.1 Lymphocytes (%) (Auto) 27.7 Monocytes (%) (Auto) 9.6 Eosinophils (%) (Auto) 5.1 Basophils (%) (Auto) 0.5 Neutrophils # (Auto) 4.3 Lymphocytes # (Auto) 2.1 Monocytes # (Auto) 0.7 Eosinophils # (Auto) 0.4 Basophils # (Auto) 0.0 CBC Comment DIFF FINAL Differential Comment Sodium Level 143 Potassium Level 3.5 Chloride Level 106 Carbon Dioxide Level 27.2 Anion Gap 10 Blood Urea Nitrogen 48 Creatinine 1.40 Estimat Glomerular Filtration 37 Rate Random Glucose 101 Calcium Level 9.1 Result Diagram: 09/20/16 0603 09/20/16 0603 Imaging Last Impressions Abdomen/Pelvis CT 09/19/16 0000 Signed Impressions: Service Date/Time: Monday, September 19, 2016 11:12 - CONCLUSION: 1. Diffuse fatty infiltration of the liver. 2. Benign left renal cyst measuring 4.8 cm. 3. Diffuse diverticulosis of the entire colon. 4. Nonspecific soft tissue or inflammatory changes in the subcutaneous soft tissues of the right groin. 5. No calcified renal stones or hydronephrosis. Bilateral extrarenal pelves. Maninder Martel MD Assessment and Plan Assessment and Plan Assessment Acute kidney injury, improving Urinary retention, improving Fatty liver Right groin inflammatory changes Diffuse diverticulosis Diabetes Obesity Management Continue Nichols catheter drainage Continue IV fluids at a lower rate Follow renal indices Discontinue Hyzaar Monitor for any hypoglycemia with the use of her Amaryl together with renal dysfunction Could be discharge in a.m. if stable with Nichols catheter in place To see her urologist as soon as possible as outpatient Discussed with patient Avoid any nephrotoxic agents Discussed with nurse 45 minutes Ricardo Lazar MD Sep 20, 2016 12:20
[2016-09-20] MEDS ORDERED: ALPRAZolam 0.5 MG TAB PO PRN (14:00)
[2016-09-20 16:00] VITALS: BP 122/65; PULSE 96; RESP 19; TEMP 98; O2SAT 96
[2016-09-20 20:22] VITALS: BP 133/65; PULSE 91; RESP 14; TEMP 99.4; O2SAT 93
[2016-09-20] MEDS: PRAVASTATIN SOD 80 MG TAB PO SCH (21:38)
[2016-09-20] MEDS: SODIUM CHLOR 0.9% 1000 ML INJ 1,000 ML IV SCH (22:14)
[2016-09-21 00:41] VITALS: BP 145/75; PULSE 91; RESP 16; TEMP 98.7; O2SAT 94
[2016-09-21] MEDS ORDERED: ACETAMINOPHEN/HYDROcodone 325 MG/5 MG TAB PO PRN (03:15)
[2016-09-21 04:16] LABS: C. DIFF EPI 027 PRESUMPTIVE NEGATIVE (NEGATIVE)
[2016-09-21 04:33] LABS: C. DIFF TOXIN PCR POSITIVE (NEGATIVE)
[2016-09-21] MEDS ORDERED: VANCOMYCIN 500 MG VIAL (FOR ORAL USE ONLY) PO ONE (05:45)
[2016-09-21 08:00] VITALS: BP 151/74; PULSE 78; RESP 18; TEMP 97.5; O2SAT 96
[2016-09-21] MEDS: SODIUM CHLORIDE 0.9% FLUSH 10 ML FLUSH IV FLUSH SCH ×2 (08:36→21:00)
[2016-09-21] MEDS: NIFEdipine 30 MG SUSTAINED RELEASE TAB PO SCH (08:36)
[2016-09-21] MEDS: FENOFIBRATE 145 MG TAB PO SCH (08:36)
[2016-09-21] MEDS: GLIMEPIRIDE 2 MG TAB PO SCH (08:36)
[2016-09-21] MEDS: VANCOMYCIN 500 MG VIAL (FOR ORAL USE ONLY) PO SCH ×4 (08:37→22:17)
[2016-09-21] MEDS: DOCUSATE SODIUM 50 MG/SENNA 8.6 MG TAB PO SCH ×2 (08:38→22:18)
--- NOTE | 2016-09-21 11:22 | HHI.NPPN ---
Subjective Interval History renal function has improved. Review of Systems General Constitutional: Fatigue Objective Data Data 09/20/16 09/21/16 19:00 07:00 Intake Total 1100 ml 1892 ml Output Total 600 ml 4800 ml Balance 500 ml -2908 ml Intake IV Total 1100 ml 1892 ml Output Urine Total 600 ml 4800 ml # Bowel Movements 4 Vital Signs Date Time Temp Pulse Resp B/P Pulse Ox O2 Delivery O2 Flow Rate FiO2 09/21/16 08:00 97.5 78 18 151/74 96 09/21/16 00:41 98.7 91 16 145/75 94 09/20/16 20:22 99.4 91 14 133/65 93 09/20/16 16:00 98.0 96 19 122/65 96 09/20/16 12:00 98.1 79 18 132/78 96 -: 09/20/16 0603 09/20/16 0603 Physical Exam General Appearance: Well Developed, No Acute Distress Ears & Nose Ears & Nose Exam: Tympanic Membranes Normal Pulmonary Resp Exam: Clear Bilaterally, Breath Sounds Equal Cardiology CV Exam: Regular, Normal Sinus Rhythm Gastrointestinal/Abdomen GI Exam: Soft, Non-Tender Musculoskeletal MS Exam: Joints Intact Extremeties Extremities Exam: No Edema Neurologic Neuro Exam: Moving All Extremities Assessment/Plan Problem List: (1) Renal failure Plan: In june her creatinine was 0.67, GFR 86 SAJI from obstructive uropathy/urinary retention Renal function has improved. (2) Acute urinary retention Plan: begin flomax voiding trial tomorrow, may need urology evaluation no bladder mass visualized on imaging (3) DM II (diabetes mellitus, type II), controlled Plan: monitor glucose goal 140-180 mg/dL Plan I will sign off at this time. She can be discharged from renal standpoint. Problem Qualifiers (1) Renal failure: Qualified Code: N17.9 - Acute renal failure, unspecified acute renal failure type Juan Miguel Yi MD Sep 21, 2016 11:22
[2016-09-21 12:00] VITALS: BP 143/78; PULSE 82; RESP 19; TEMP 98.1; O2SAT 95
[2016-09-21] MEDS: HEPARIN SODIUM - SQ 10,000 UNITS/ML VIAL SQ SCH ×2 (13:07→22:23)
[2016-09-21 16:00] VITALS: BP 152/75; PULSE 88; RESP 20; TEMP 98.5; O2SAT 95
--- NOTE | 2016-09-21 19:21 | HHI.PR ---
Subjective Interval History Alert, oriented, diarrhea is improving, C. difficile reported on her stool test , still has Nichols catheter in place Review of Systems Constitutional Constitutional Remarks No more abdominal pain, 10 systems reviewed otherwise negative Vitals/Results Intake & Output 09/20/16 09/20/16 09/21/16 14:59 22:59 06:59 Intake Total 2992 ml Output Total 600 ml 4800 ml Balance -600 ml 2992 ml -4800 ml Intake IV Total 2992 ml Output Urine Total 600 ml 4800 ml # Bowel Movements 4 Vital Signs Vital Signs Date Time Temp Pulse Resp B/P Pulse Ox O2 Delivery O2 Flow Rate FiO2 09/21/16 16:00 98.5 88 20 152/75 95 09/21/16 12:00 98.1 82 19 143/78 95 09/21/16 08:00 97.5 78 18 151/74 96 09/21/16 00:41 98.7 91 16 145/75 94 09/20/16 20:22 99.4 91 14 133/65 93 CBC/BMP: 09/20/16 0603 09/20/16 0603 Lab Results Laboratory Tests Test 09/20/16 22:30 Stool C. difficile Toxin (PCR) POSITIVE Stl C. difficile Toxin PRESUMPTIVE Epiderm 027 NEGATIVE Physical Exam General General Appearance: Well Developed, No Acute Distress Ears & Nose Ears & Nose Exam: Tympanic Membranes Normal Pulmonary Resp Exam: Clear Bilaterally, Breath Sounds Equal Cardiology CV Exam: Regular, Normal Sinus Rhythm Gastrointestinal/Abdomen GI Exam: Soft, Non-Tender Musculoskeletal MS Exam: Joints Intact Extremeties Extremities Exam: No Edema Neurologic Neuro Exam: Moving All Extremities Assessment/Plan Assessment/Plan Assessment Urinary retention, resolved with Nichols catheter Acute kidney injury, improving C. difficile colitis Diabetes Management Continue IV fluids Follow renal function Follow electrolytes and replace as needed Vancomycin 250 mg by mouth 4 times a day 2 weeks Flomax started by nephrology Discussed with patient Discussed with nurse DVT prophylaxis 35 minutes Ricardo Lazar MD Sep 21, 2016 19:21
[2016-09-21 20:00] VITALS: BP 133/81; PULSE 92; RESP 16; TEMP 99.4; O2SAT 94
[2016-09-21] MEDS: POTASSIUM CHLORIDE 10 MEQ CONTROLLED RELEASE TAB PO SCH (22:18)
[2016-09-21] MEDS: TEMAZEPAM 15 MG CAP PO PRN (22:18)
[2016-09-21] MEDS: PRAVASTATIN SOD 80 MG TAB PO SCH (22:18)
[2016-09-21] MEDS: SODIUM CHLOR 0.9% 1000 ML INJ 1,000 ML IV SCH (22:24)
[2016-09-22 00:29] VITALS: BP 129/78; PULSE 90; RESP 18; TEMP 99.6; O2SAT 95
[2016-09-22 04:15] VITALS: TEMP 98.5
[2016-09-22 05:48] LABS: AUTOMATED NEUTROPHIL # 3.7 TH/MM3 (1.8-7.7); BASOPHIL # 0.1 TH/MM3 (0-0.2); BASOPHIL % 0.8 % (0.0-2.0); EOSINOPHIL # 0.4 TH/MM3 (0-0.4); EOSINOPHIL % 5.5 % (0.0-4.0); HEMATOCRIT 34.6 % (35.0-46.0); HEMO FLAGS DIFF FINAL; LYMPH % 34.8 % (9.0-44.0); LYMPHOCYTE # 2.6 TH/MM3 (1.0-4.8); MEAN CELL VOLUME 86.2 FL (80.0-100.0); MEAN CORPUSCULAR HEMOGLOBIN 28.6 PG (27.0-34.0); MEAN CORPUSCULAR HGB CONC 33.1 % (32.0-36.0); MONO % 9.6 % (0.0-8.0); NEUT % 49.3 % (16.0-70.0); PLATELET COUNT 261 TH/MM3 (150-450); RED BLOOD COUNT 4.01 MIL/MM3 (4.00-5.30); RED CELL DISTRIBUTION WIDTH 13.2 % (11.6-17.2); WHITE BLOOD COUNT 7.5 TH/MM3 (4.0-11.0)
[2016-09-22 05:52] LABS: POTASSIUM 3.2 MEQ/L (3.5-5.1)
[2016-09-22 05:57] LABS: BICARBONATE 28.4 MEQ/L (21.0-32.0)
[2016-09-22 08:00] VITALS: BP 157/85; PULSE 91; RESP 16; TEMP 98; O2SAT 95
--- NOTE | 2016-09-22 08:13 | HHI.PR ---
Subjective History of Present Illness Patient diarrhea better d/w NEWTON Slater at bed side. have low potassium will replace. Review of Systems Constitutional Constitutional: Fatigue, Weakness Vitals/Results Intake & Output 09/21/16 09/21/16 09/22/16 15:00 23:00 07:00 Intake Total 1374 ml 701 ml Output Total 2100 ml 2250 ml 1650 ml Balance -726 ml -2250 ml -949 ml Intake IV Total 1374 ml 701 ml Output Urine Total 2100 ml 2250 ml 1650 ml # Bowel Movements 1 Vital Signs Vital Signs Date Time Temp Pulse Resp B/P Pulse Ox O2 Delivery O2 Flow Rate FiO2 09/22/16 04:15 98.5 09/22/16 00:29 99.6 90 18 129/78 95 09/21/16 20:00 99.4 92 16 133/81 94 09/21/16 16:00 98.5 88 20 152/75 95 09/21/16 12:00 98.1 82 19 143/78 95 CBC/BMP: 09/22/16 0436 09/22/16 0436 Lab Results Laboratory Tests Test 09/22/16 04:36 White Blood Count 7.5 TH/MM3 Red Blood Count 4.01 MIL/MM3 Hemoglobin 11.4 GM/DL Hematocrit 34.6 % Mean Corpuscular Volume 86.2 FL Mean Corpuscular Hemoglobin 28.6 PG Mean Corpuscular Hemoglobin 33.1 % Concent Red Cell Distribution Width 13.2 % Platelet Count 261 TH/MM3 Mean Platelet Volume 8.1 FL Neutrophils (%) (Auto) 49.3 % Lymphocytes (%) (Auto) 34.8 % Monocytes (%) (Auto) 9.6 % Eosinophils (%) (Auto) 5.5 % Basophils (%) (Auto) 0.8 % Neutrophils # (Auto) 3.7 TH/MM3 Lymphocytes # (Auto) 2.6 TH/MM3 Monocytes # (Auto) 0.7 TH/MM3 Eosinophils # (Auto) 0.4 TH/MM3 Basophils # (Auto) 0.1 TH/MM3 CBC Comment DIFF FINAL Differential Comment Sodium Level 145 MEQ/L Potassium Level 3.2 MEQ/L Chloride Level 109 MEQ/L Carbon Dioxide Level 28.4 MEQ/L Anion Gap 8 MEQ/L Blood Urea Nitrogen 10 MG/DL Creatinine 0.67 MG/DL Estimat Glomerular Filtration 86 ML/MIN Rate Random Glucose 97 MG/DL Calcium Level 8.8 MG/DL Physical Exam General General Appearance: Well Developed, No Acute Distress Ears & Nose Ears & Nose Exam: Tympanic Membranes Normal Throat Throat Exam: Oral Mucosa [place] & Moist, Oral Pharynx Normal Pulmonary Resp Exam: Clear Bilaterally, Breath Sounds Equal Cardiology CV Exam: Regular, Normal Sinus Rhythm Gastrointestinal/Abdomen GI Exam: Soft, Non-Tender Musculoskeletal MS Exam: Joints Intact Integumentary Skin Exam: Clear, Warm, Dry, Intact Extremeties Extremities Exam: No Edema Neurologic Neuro Exam: Alert, Awake, Moving All Extremities VTE Prophylaxis VTE Prophylaxis Device: SCDs PUD Prophylasis PUD Prophylaxis: Protonix Assessment/Plan Assessment/Plan Assessment and Plan. Urinary retention, resolved with Nichols catheter Acute kidney injury, improving C. difficile colitis..on vancomycin. Diabetes on ISS monitoring sugar. Hypokalemia will replace. Continue IV fluids Follow renal function Follow electrolytes and replace as needed Vancomycin 250 mg by mouth 4 times a day 2 weeks Flomax by nephrology Discussed with patient Discussed with nurse DVT prophylaxis Discussed Condition with: Patient Bhanu Bhat MD Sep 22, 2016 08:13
[2016-09-22] MEDS: DOCUSATE SODIUM 50 MG/SENNA 8.6 MG TAB PO SCH ×2 (09:07→22:00)
[2016-09-22] MEDS: NIFEdipine 30 MG SUSTAINED RELEASE TAB PO SCH (09:07)
[2016-09-22] MEDS: FENOFIBRATE 145 MG TAB PO SCH (09:07)
[2016-09-22] MEDS: GLIMEPIRIDE 2 MG TAB PO SCH (09:07)
[2016-09-22] MEDS: POTASSIUM CHLORIDE 10 MEQ CONTROLLED RELEASE TAB PO SCH ×2 (09:07→22:00)
[2016-09-22] MEDS: VANCOMYCIN 500 MG VIAL (FOR ORAL USE ONLY) PO SCH ×4 (09:09→22:00)
[2016-09-22] MEDS: SODIUM CHLORIDE 0.9% FLUSH 10 ML FLUSH IV FLUSH SCH ×2 (09:11→22:01)
[2016-09-22] MEDS: SODIUM CHLOR 0.9% 1000 ML INJ 1,000 ML IV SCH ×2 (09:11→13:13)
[2016-09-22] MEDS ORDERED: POTASSIUM CHLORIDE 10 MEQ CONTROLLED RELEASE TAB PO ONE (11:00)
[2016-09-22 12:00] VITALS: BP 164/82; PULSE 93; RESP 16; TEMP 97.1; O2SAT 96
[2016-09-22] MEDS: HEPARIN SODIUM - SQ 10,000 UNITS/ML VIAL SQ SCH (12:55)
[2016-09-22 16:00] VITALS: BP 147/74; PULSE 81; RESP 16; TEMP 99; O2SAT 96
[2016-09-22 20:00] VITALS: BP 158/84; PULSE 91; RESP 20; TEMP 97.1; O2SAT 96
[2016-09-22] MEDS: PRAVASTATIN SOD 80 MG TAB PO SCH (22:00)
[2016-09-22] MEDS: TEMAZEPAM 15 MG CAP PO PRN (22:07)
[2016-09-23] VITALS: BP 117/71; PULSE 79; RESP 20; TEMP 97; O2SAT 97
[2016-09-23] MEDS: HEPARIN SODIUM - SQ 10,000 UNITS/ML VIAL SQ SCH ×2 (00:01→11:00)
[2016-09-23 06:24] LABS: AUTOMATED NEUTROPHIL # 3.8 TH/MM3 (1.8-7.7); BASOPHIL % 0.6 % (0.0-2.0); EOSINOPHIL # 0.5 TH/MM3 (0-0.4); HEMATOCRIT 36.5 % (35.0-46.0); HEMO FLAGS DIFF FINAL; LYMPH % 34.3 % (9.0-44.0); LYMPHOCYTE # 2.6 TH/MM3 (1.0-4.8); MEAN CELL VOLUME 84.8 FL (80.0-100.0); MEAN CORPUSCULAR HEMOGLOBIN 28.9 PG (27.0-34.0); MEAN CORPUSCULAR HGB CONC 34.1 % (32.0-36.0); MONO % 9.3 % (0.0-8.0); NEUT % 48.8 % (16.0-70.0); PLATELET COUNT 311 TH/MM3 (150-450); RED BLOOD COUNT 4.31 MIL/MM3 (4.00-5.30); RED CELL DISTRIBUTION WIDTH 13.1 % (11.6-17.2); WHITE BLOOD COUNT 7.6 TH/MM3 (4.0-11.0)
[2016-09-23 06:36] LABS: CHLORIDE 109 MEQ/L (98-107); POTASSIUM 3.9 MEQ/L (3.5-5.1); SODIUM (NA) 143 MEQ/L (136-145)
[2016-09-23 06:41] LABS: ANION GAP 8 MEQ/L (5-15); BICARBONATE 25.7 MEQ/L (21.0-32.0); BLOOD UREA NITROGEN 11 MG/DL (7-18)
[2016-09-23 06:44] LABS: ALT (GPT) 26 U/L (10-53); AST (GOT) 25 U/L (15-37); GLOMERULAR FILTRATION RATE 87 ML/MIN (>89)
[2016-09-23 06:46] LABS: TOTAL BILIRUBIN ADULT 0.5 MG/DL (0.2-1.0)
[2016-09-23 06:47] LABS: ALKALINE PHOSPHATASE 70 U/L (45-117)
[2016-09-23 08:00] VITALS: BP 124/77; PULSE 93; RESP 20; TEMP 98; O2SAT 97
--- NOTE | 2016-09-23 08:32 | HHI.PR ---
Subjective History of Present Illness Patient diarrhea better d/w NEWTON Slater at bed side. have low potassium resolved.. ..ok to dc home today if ok with urology. Review of Systems Constitutional Constitutional: Fatigue, Weakness Vitals/Results Intake & Output 09/22/16 09/22/16 09/23/16 15:00 23:00 07:00 Intake Total 2450 ml 421 ml 1589 ml Output Total 2150 ml 400 ml 2750 ml Balance 300 ml 21 ml -1161 ml Intake Oral 2400 ml 1200 ml IV Total 50 ml 421 ml 389 ml Output Urine Total 2150 ml 400 ml 2750 ml # Bowel Movements 1 Vital Signs Vital Signs Date Time Temp Pulse Resp B/P Pulse Ox O2 Delivery O2 Flow Rate FiO2 09/23/16 04:00 Room Air 09/23/16 00:00 Room Air 09/23/16 00:00 97.0 79 20 117/71 97 09/22/16 20:00 Room Air 09/22/16 20:00 97.1 91 20 158/84 96 09/22/16 16:00 99.0 81 16 147/74 96 09/22/16 12:00 97.1 93 16 164/82 96 CBC/BMP: 09/23/16 0540 09/23/16 0540 Lab Results Laboratory Tests Test 09/23/16 05:40 White Blood Count 7.6 TH/MM3 Red Blood Count 4.31 MIL/MM3 Hemoglobin 12.5 GM/DL Hematocrit 36.5 % Mean Corpuscular Volume 84.8 FL Mean Corpuscular Hemoglobin 28.9 PG Mean Corpuscular Hemoglobin 34.1 % Concent Red Cell Distribution Width 13.1 % Platelet Count 311 TH/MM3 Mean Platelet Volume 7.5 FL Neutrophils (%) (Auto) 48.8 % Lymphocytes (%) (Auto) 34.3 % Monocytes (%) (Auto) 9.3 % Eosinophils (%) (Auto) 7.0 % Basophils (%) (Auto) 0.6 % Neutrophils # (Auto) 3.8 TH/MM3 Lymphocytes # (Auto) 2.6 TH/MM3 Monocytes # (Auto) 0.7 TH/MM3 Eosinophils # (Auto) 0.5 TH/MM3 Basophils # (Auto) 0.0 TH/MM3 CBC Comment DIFF FINAL Differential Comment Sodium Level 143 MEQ/L Potassium Level 3.9 MEQ/L Chloride Level 109 MEQ/L Carbon Dioxide Level 25.7 MEQ/L Anion Gap 8 MEQ/L Blood Urea Nitrogen 11 MG/DL Creatinine 0.66 MG/DL Estimat Glomerular Filtration 87 ML/MIN Rate Random Glucose 107 MG/DL Calcium Level 9.4 MG/DL Total Bilirubin 0.5 MG/DL Aspartate Amino Transf 25 U/L (AST/SGOT) Alanine Aminotransferase 26 U/L (ALT/SGPT) Alkaline Phosphatase 70 U/L Total Protein 7.3 GM/DL Albumin 3.2 GM/DL Physical Exam General General Appearance: Well Developed, No Acute Distress Ears & Nose Ears & Nose Exam: Tympanic Membranes Normal Throat Throat Exam: Oral Mucosa [place] & Moist, Oral Pharynx Normal Pulmonary Resp Exam: Clear Bilaterally, Breath Sounds Equal Cardiology CV Exam: Regular, Normal Sinus Rhythm Gastrointestinal/Abdomen GI Exam: Soft, Non-Tender Musculoskeletal MS Exam: Joints Intact Integumentary Skin Exam: Clear, Warm, Dry, Intact Extremeties Extremities Exam: No Edema Neurologic Neuro Exam: Alert, Awake, Moving All Extremities VTE Prophylaxis VTE Prophylaxis Device: SCDs PUD Prophylasis PUD Prophylaxis: Protonix Assessment/Plan Assessment/Plan Assessment and Plan. Urinary retention, resolved with Nichols catheter urology consulted for further evaluation and management. Acute kidney injury,resolved. C. difficile colitis..on vancomycin. Diabetes on ISS monitoring sugar. Hypokalemia resolved. Continue IV fluids Follow renal function Follow electrolytes and replace as needed Vancomycin 250 mg by mouth 4 times a day Flomax by nephrology Discussed with patient Discussed with nurse DVT prophylaxis ok to dc home today if ok with urology. f/u with pcp/ urology 1 week. Discussed Condition with: Patient Bhanu Bhat MD Sep 23, 2016 08:32
[2016-09-23] MEDS: DOCUSATE SODIUM 50 MG/SENNA 8.6 MG TAB PO SCH ×2 (09:00→10:17)
[2016-09-23] MEDS: SODIUM CHLORIDE 0.9% FLUSH 10 ML FLUSH IV FLUSH SCH (09:00)
[2016-09-23] MEDS ORDERED: VANC250C2 PO (09:30)
[2016-09-23] MEDS: VANCOMYCIN 500 MG VIAL (FOR ORAL USE ONLY) PO SCH ×2 (10:11→12:47)
[2016-09-23] MEDS: NIFEdipine 30 MG SUSTAINED RELEASE TAB PO SCH (10:16)
[2016-09-23] MEDS: FENOFIBRATE 145 MG TAB PO SCH (10:16)
[2016-09-23] MEDS: GLIMEPIRIDE 2 MG TAB PO SCH (10:17)
[2016-09-23] MEDS: POTASSIUM CHLORIDE 10 MEQ CONTROLLED RELEASE TAB PO SCH (10:17)
[2016-09-23 12:00] VITALS: BP 146/82; PULSE 93; RESP 20; TEMP 98; O2SAT 97
[2016-09-23] MEDS: SODIUM CHLOR 0.9% 1000 ML INJ 1,000 ML IV SCH (12:02)
--- NOTE | 2016-09-25 22:43 | MD ---
cc: BHANU RIBEIRO MD ADMISSION DATE: 09/19/2016 DISCHARGE DATE: 09/23/2016 Okay to discharge the patient home. CONDITION AT THE TIME OF DISCHARGE Satisfactory. ACTIVITY As tolerated. DIET Cardiac diet. ALLERGIES ALLERGY TO SULFA. DISCHARGE MEDICATIONS Include: 1. Vancomycin 250 milligrams p.o. q.i.d. for 7 days. 2. Xanax 0.5 milligrams p.o. q.8 hours p.r.n. anxiety. 3. Vitamin D 400 units p.o. daily. 4. Fenofibrate 130 milligrams p.o. daily. 5. Glimepiride 2 milligrams p.o. daily. 6. Losartan/hydrochlorothiazide 100/12.5 p.o. daily. 7. Nifedipine 60 milligrams p.o. daily. 8. Simvastatin 40 milligrams p.o. daily. FOLLOW UP The patient advised to follow up with PCP and GI in 1 week. ADMISSION DIAGNOSIS 1. Urinary retention resolved with Nichols catheter. 2. History of acute kidney injury. 3. C. Diff colitis. The patient was given vancomycin which is improved. 4. Diabetes was on insulin sliding scale. 5. Hypokalemia which resolved. HOSPITAL COURSE This is a 76-year-old female admitted with above-mentioned medical problems have acute renal failure/insufficiency which has resolved. Nephrology seen the patient. The patient had a urinary retention status post Nichols catheter and placement, urology consulted. The patient remained stable. No acute event happened. The patient discharged in satisfactory condition. Further details in the medical record. Bhanu Ribeiro MD EA/TRISTIAN /10:14 AM /10:34 PM
== END 2016-09-23 14:30 | disposition home or self-care (01) ==
LOC: PHED 09:28 → INTOOBSV 12:06 → PHEDA 12:06 → PH3B 14:23
PROVIDERS: ADMIT Specialist; ATTEND Family Medicine
DX: N17.9 Acute kidney failure, unspecified (principal); R33.9 Retention of urine, unspecified; K76.0 Fatty (change of) liver, not elsewhere classified; R10.31 Right lower quadrant pain; F41.9 Anxiety disorder, unspecified; Z85.51 Personal history of malignant neoplasm of bladder; A04.7 Enterocolitis due to Clostridium difficile; K57.90 Diverticulosis of intestine, part unspecified, without perforation or abscess without bleeding; G47.00 Insomnia, unspecified; E11.9 Type 2 diabetes mellitus without complications; E66.9 Obesity, unspecified; I10 Essential (primary) hypertension; Z79.899 Other long term (current) drug therapy; E87.6 Hypokalemia; Z79.84 Long term (current) use of oral hypoglycemic drugs
CPT/HCPCS: 51702; 74176; 80048; 80053; 81001; 83690; 83735; 85025; 85610; 85730; 87493; 96374; 96375; 99285; G0378; J1644; J2270; J2405; J7030

== ENCOUNTER 2016-09-27 06:22 | Emergency (ER) | payer BC ==
[~2016-09-27] VITALS: Ht 142.2 cm; Wt 73.0 kg
[~2016-09-27 06:22] MED LIST changes: -MULT1CHW70; -NIFE15TA PO; +NIFE60TA8 PO; +VANC250C2 PO
[2016-09-27 06:27] VITALS: BP 107/61; PULSE 106; RESP 18; TEMP 97.8; O2SAT 98
[2016-09-27 06:39] VITALS: BP 107/67; PULSE 106; RESP 18; TEMP 97.8; O2SAT 98
--- NOTE | 2016-09-27 06:40 | PD ---
HPI Chief Complaint: blood and urine Time Seen by Provider: 06:34 Travel History International Travel<30 days: No Contact w/Intl Traveler<30days: No Traveled to known affect area: No History of Present Illness HPI 76 year old female presents to the emergency department by private transportation for complaint of hematuria. Patient states she awakened at 5 AM and noticed blood in her urine. Patient has indwelling urinary catheter that was inserted on Thursday of this week after she was identified to have acute renal insufficiency/failure. Patient was discharged from the hospital on oral antibiotic and has an appointment with her urologist on Thursday. Patient does not report any fever chills nausea vomiting or abdominal pain. Patient is not noted any known trauma or issues with the catheter. Patient is remaining well- hydrated. Patient is concerned because she notes blood in the urine and she has not noticed any clearing of the pink tinged urine from her urinary catheter. Patient rates pain as 0/10 in intensity. Patient is followed by urologist Dr. Viera for possible bladder cancer. Patient also has history of hypertension and diabetes with good blood sugar control. [facility] Past Medical History Narrative Medical Diabetes bladder cancer breast cancer anxiety hypertension cholecystectomy right mastectomy no tobacco use no alcohol use; nursing notes reviewed Arthritis: No Autoimmune Disease: No Anxiety: Yes Heart Rhythm Problems: No Cancer: Yes (bladder right mastectomy) Cardiovascular Problems: Yes High Cholesterol: No Chemotherapy: No Chest Pain: No Congestive Heart Failure: No COPD: No Diabetes: Yes Endocrine: No Genitourinary: Yes Hypertension: Yes Immune Disorder: No Musculoskeletal: No Neurologic: No Psychiatric: No Reproductive: No Respiratory: No Radiation Therapy: No Sickle Cell Disease: No Sleep Apnea: No Thyroid Disease: No Past Surgical History Abdominal Surgery: Yes AICD: No Appendectomy: Yes Arteriovenous Shunt: No Cardiac Surgery: No Endocrine Surgery: No Eye Surgery: No Gynecologic Surgery: Yes (right mastectomy) Insulin Pump: No Joint Replacement: No Oral Surgery: No Pacemaker: No Thoracic Surgery: No Social History Alcohol Use: No Tobacco Use: No Substance Use: No Allergies-Medications (Allergen,Severity, Reaction): Coded Allergies: Sulfa (Verified Allergy, Unknown, 09/27/16) Reported Meds & Prescriptions Reported Meds & Active Scripts Active Vancomycin (Vancomycin HCl) 250 Mg Cap 250 Mg PO QID Reported Nifedipine ER 24 HR (Nifedipine) 60 Mg Tab 1 Tab PO DAILY Vitamin D (Cholecalciferol) 400 Unit Cap Simvastatin 40 Mg Tab 40 Mg PO HS Losartan-Hydrochlorothiazide 100-12.5 Mg Tab 1 Tab PO DAILY Glimepiride 2 Mg Tab 2 Mg PO DAILY Take with breakfast or first main meal Fenofibrate Micronized 130 Mg Cap 130 Mg PO DAILY Alprazolam 0.5 Mg Tab 0.5 Mg PO Q8H PRN Review of Systems Except as stated in HPI: all other systems reviewed are Neg General / Constitutional: No: Fever, Chills HENT: No: Congestion Cardiovascular: No: Chest Pain or Discomfort Respiratory: No: Shortness of Breath Gastrointestinal: No: Abdominal Pain Genitourinary: Positive: Hematuria, No: Decreased Urinary Output Musculoskeletal: No: Myalgias, Arthralgias Skin: No Rash Neurologic: No: Weakness Psychiatric: No: Anxiety Endocrine: No: Heat Intolerance Hematologic/Lymphatic: No: Easy Bruising Physical Exam Narrative GENERAL: Well-developed well-nourished female in no acute distress no respiratory distress SKIN: Warm and dry. HEAD: Normocephalic. EYES: No scleral icterus. No injection or drainage. NECK: Supple, trachea midline. No JVD or lymphadenopathy. CARDIOVASCULAR: Regular rate and rhythm without murmurs, gallops, or rubs. RESPIRATORY: Breath sounds equal bilaterally. No accessory muscle use. GASTROINTESTINAL: Abdomen soft, non-tender, nondistended. : Urinary catheter in place with scant amount of pink tinged urine and urinary catheter bag MUSCULOSKELETAL: No cyanosis, or edema. BACK: Nontender without obvious deformity. No CVA tenderness. Data Data Last Documented VS Vital Signs Date Time Temp Pulse Resp B/P Pulse Ox O2 Delivery O2 Flow Rate FiO2 09/27/16 06:41 18 09/27/16 06:39 97.8 106 107/67 98 Orders Complete Blood Count With Diff (09/27/16 06:34) Basic Metabolic Panel (Bmp) (09/27/16 06:34) Urinalysis - C+S If Indicated (09/27/16 06:34) MDM Medical Decision Making Medical Screen Exam Complete: Yes Emergency Medical Condition: Yes Medical Record Reviewed: Yes Differential Diagnosis Hematuria, UTI, bladder irritation, bladder mass, coagulopathy Narrative Course @ 0700 care signed over to oncoming MD Dr Stephanie Escobar,Reta Staley MD Sep 27, 2016 06:39
[2016-09-27 07:09] LABS: BASOPHIL % 0.5 % (0.0-2.0); EOSINOPHIL # 0.4 TH/MM3 (0-0.4); EOSINOPHIL % 4.2 % (0.0-4.0); HEMATOCRIT 38.6 % (35.0-46.0); HEMO FLAGS DIFF FINAL; LYMPHOCYTE # 2.5 TH/MM3 (1.0-4.8); MEAN CELL VOLUME 86.1 FL (80.0-100.0); MEAN CORPUSCULAR HEMOGLOBIN 29.4 PG (27.0-34.0); MEAN CORPUSCULAR HGB CONC 34.1 % (32.0-36.0); MONO % 9.8 % (0.0-8.0); NEUT % 60.5 % (16.0-70.0); PLATELET COUNT 368 TH/MM3 (150-450); RED BLOOD COUNT 4.48 MIL/MM3 (4.00-5.30); RED CELL DISTRIBUTION WIDTH 13.4 % (11.6-17.2); WHITE BLOOD COUNT 9.9 TH/MM3 (4.0-11.0)
[2016-09-27 07:10] LABS: BLOOD, URINE LARGE (NEG); GLUCOSE,URINE 1000 OR GREATER mg/dL (NEG); KETONE, URINE NEG (NEG); NITRITE,URINE NEG (NEG)
[2016-09-27 07:11] LABS: METHOD OF COLLECTION CATH; URINE COLOR PINK (YELLW/STRAW)
[2016-09-27 07:14] LABS: COMMENT (UR) CULT NOT INDICATED; CULTURE IF INDICATED CULT NOT INDICATED; RBC, URINE 15-19 /hpf (0-3); SQUAMOUS EPITHELIAL CELL URINE 0-5 /hpf (0-5); WBC, URINE 0-2 /hpf (0-5)
[2016-09-27 07:16] LABS: POTASSIUM 3.5 MEQ/L (3.5-5.1)
[2016-09-27 07:19] LABS: BICARBONATE 27.2 MEQ/L (21.0-32.0)
--- NOTE | 2016-09-27 08:07 | PD ---
Data Data Last Documented VS Vital Signs Date Time Temp Pulse Resp B/P Pulse Ox O2 Delivery O2 Flow Rate FiO2 09/27/16 06:41 18 09/27/16 06:39 97.8 106 107/67 98 Orders Complete Blood Count With Diff (09/27/16 06:34) Basic Metabolic Panel (Bmp) (09/27/16 06:34) Urinalysis - C+S If Indicated (09/27/16 06:34) Bladder/Catheter Irrigation (09/27/16 08:31) Labs Laboratory Tests Test 09/27/16 06:45 White Blood Count 9.9 TH/MM3 Red Blood Count 4.48 MIL/MM3 Hemoglobin 13.2 GM/DL Hematocrit 38.6 % Mean Corpuscular Volume 86.1 FL Mean Corpuscular Hemoglobin 29.4 PG Mean Corpuscular Hemoglobin 34.1 % Concent Red Cell Distribution Width 13.4 % Platelet Count 368 TH/MM3 Mean Platelet Volume 7.6 FL Neutrophils (%) (Auto) 60.5 % Lymphocytes (%) (Auto) 25.0 % Monocytes (%) (Auto) 9.8 % Eosinophils (%) (Auto) 4.2 % Basophils (%) (Auto) 0.5 % Neutrophils # (Auto) 6.0 TH/MM3 Lymphocytes # (Auto) 2.5 TH/MM3 Monocytes # (Auto) 1.0 TH/MM3 Eosinophils # (Auto) 0.4 TH/MM3 Basophils # (Auto) 0.0 TH/MM3 CBC Comment DIFF FINAL Differential Comment Urine Collection Type CATH Urine Color PINK Urine Turbidity CLEAR Urine pH 6.0 Urine Specific [place] 1.006 Urine Protein 100 mg/dL Urine Glucose (UA) 1000 OR GREATER mg/dL Urine Ketones NEG mg/dL Urine Occult Blood LARGE Urine Nitrite NEG Urine Bilirubin NEG Urine Leukocyte Esterase TRACE Urine RBC 15-19 /hpf Urine WBC 0-2 /hpf Urine Squamous Epithelial 0-5 /hpf Cells Microscopic Urinalysis Comment CULT NOT INDICATED Sodium Level 136 MEQ/L Potassium Level 3.5 MEQ/L Chloride Level 100 MEQ/L Carbon Dioxide Level 27.2 MEQ/L Anion Gap 9 MEQ/L Blood Urea Nitrogen 16 MG/DL Creatinine 0.84 MG/DL Estimat Glomerular Filtration 66 ML/MIN Rate Random Glucose 170 MG/DL Calcium Level 9.3 MG/DL [facility] Supervised Visit with OLY: No Narrative Course Patient care assumed from Dr. Reta Escobar at 0700 shift change. This is a 76- year-old female presents emergency department for evaluation of painless hematuria. Patient's urine is noninfected, labs are reassuring. Review of her records shows that last week she was here for urinary retention acute kidney injury and creatinine was 3 at that time and gradually resolved after Nichols catheter placement. I think that she does need follow-up as follows. Patient following Dr. Viera, has had 12 intracystic chemotherapy treatments, last cystoscopy was last year, she is to follow [facility] for consideration of a repeat cystoscopy. She is already established there was last seen on September 04. She feels well and has no abdominal pain. She stable for discharge, she has a follow-up appointment this coming Thursday (2 day) with her local urologist Dr. Viera. Leave Nichols catheter in until then. Discussed return to ED criteria Diagnosis Primary Impression: Hematuria Additional Instruction: Follow with Dr. Viera on Thursday as scheduled, follow with the [facility] on the as scheduled. Disposition: DISCHARGE HOME Condition: Stable Francisco Brown MD Sep 27, 2016 08:07
== END 2016-09-27 08:32 | disposition home or self-care (01) ==
LOC: PHED 06:22
DX: R31.9 Hematuria, unspecified (principal)
CPT/HCPCS: 51700; 80048; 81001; 85025

== ENCOUNTER 2016-10-17 15:22 | Emergency (ER) | payer BC ==
[~2016-10-17] VITALS: Ht 142.2 cm; Wt 72.4 kg
[2016-10-17 15:31] VITALS: BP 161/83; PULSE 128; RESP 16; TEMP 98.1; O2SAT 99
[2016-10-17] MEDS ORDERED: AMBI10TA PO (15:36)
[2016-10-17] MEDS ORDERED: LORazepam 0.5 MG TAB PO ONE (16:30)
--- NOTE | 2016-10-17 16:54 | PD ---
HPI Chief Complaint: Complaint Time Seen by Provider: 15:53 Travel History International Travel<30 days: No Contact w/Intl Traveler<30days: No Traveled to known affect area: No History of Present Illness HPI Is a 76 year-old woman presents to the emergency department complaining of blood in her Nichols catheter. She is a history of bladder cancer. She follows with the [facility], and up until recently followed with Dr. Viera but is now going to follow with Dr. Becerra locally. She developed urinary retention with SAJI and was admitted September 19. She had her Nichols catheter placed at that time. She had one episode of hematuria and was seen September 27. She was seen in the [facility] 5 days ago with cystoscopy. They attempted to remove the Nichols catheter but she was unable to void and so the Nichols catheter was replaced. She is due to follow-up with the again in one week. She presents to the emergency department today because she noticed bright red blood in her Nichols catheter bag starting this afternoon at about 1. Denies any trauma or pulling on the catheter. History Past Medical History Narrative Medical Hypertension on hyperlipidemia Severe aortic stenosis Bladder CA Diabetes Tetanus Vaccination: > 5 Years Influenza Vaccination: No Social History Alcohol Use: No Tobacco Use: No Allergies-Medications (Allergen,Severity, Reaction): Coded Allergies: Sulfa (Verified Allergy, Unknown, 10/17/16) Reported Meds & Prescriptions Reported Meds & Active Scripts Active Reported Ambien (Zolpidem Tartrate) 10 Mg Tab 10 Mg PO HS PRN Nifedipine ER 24 HR (Nifedipine) 60 Mg Tab 1 Tab PO DAILY Vitamin D (Cholecalciferol) 400 Unit Cap Simvastatin 40 Mg Tab 40 Mg PO HS Losartan-Hydrochlorothiazide 100-12.5 Mg Tab 1 Tab PO DAILY Glimepiride 2 Mg Tab 2 Mg PO DAILY Take with breakfast or first main meal Fenofibrate Micronized 130 Mg Cap 130 Mg PO DAILY Alprazolam 0.5 Mg Tab 0.5 Mg PO Q8H PRN Review of Systems Except as stated in HPI: all other systems reviewed are Neg Physical Exam Narrative GENERAL: Well-appearing 76-year-old woman, no acute distress. SKIN: Focused skin assessment warm/dry. CARDIOVASCULAR: Regular rate and rhythm. No murmur appreciated. RESPIRATORY: No accessory muscle use. Clear to auscultation. Breath sounds equal bilaterally. GASTROINTESTINAL: Abdomen soft, non-tender, nondistended. Hepatic and splenic margins not palpable. MUSCULOSKELETAL: No obvious deformities. No clubbing. No cyanosis. No edema. : Nichols catheter bag with dark red urine, and some blood clots. Data Data Last Documented VS Vital Signs Date Time Temp Pulse Resp B/P Pulse Ox O2 Delivery O2 Flow Rate FiO2 10/17/16 17:22 112 16 138/70 97 Room Air 10/17/16 15:31 98.1 Orders Lorazepam (Ativan) (10/17/16 16:30) MDM Medical Decision Making Medical Screen Exam Complete: Yes Emergency Medical Condition: Yes Differential Diagnosis Hematuria, malignancy, mass, infection, other Narrative Course Medical decision-making this is a 76 year-old woman who presents emergency Department with dark red blood in her Nichols catheter bag. She has follow-up with [facility] urology in less than a week. We'll irrigate out the bladder. I told her she may have some continued bleeding. She is not obstructed I encouraged her to drink plenty of fluids to keep urine production up, and follow-up with her urologist as planned. Irrigation cleared to a reddish pink after about a liter. I don't think she needs to be admitted for CBI at this time. I will have them return to the emergency Department if the urine is still dark red after 48 hours. She'll need a repeat hemoglobin at that point. She otherwise looks well. She has had cystoscopies already. She has follow-up scheduled at the [facility] and with the urologist next week. I think she is safe for discharge. Diagnosis Primary Impression: Hematuria Patient Instructions: General Instructions Additional Instructions: Drink plenty of fluids to keep urine production up. Return to the emergency department for any obstruction, fevers, abdominal pain, or any other new or worsening symptoms. Return to the emergency Department if her urine is still dark red in 48 hours. Follow-up with your urologist as scheduled. Med/Other Pt SpecificInfo: No Change to Meds Disposition: 01 DISCHARGE HOME Condition: Stable Gio Mistry MD Oct 17, 2016 16:54
[2016-10-17 17:22] VITALS: BP 138/70; PULSE 112; RESP 16; O2SAT 97
== END 2016-10-17 18:25 | disposition home or self-care (01) ==
LOC: PHED 15:22
DX: R31.9 Hematuria, unspecified (principal); I10 Essential (primary) hypertension; E11.9 Type 2 diabetes mellitus without complications; E78.5 Hyperlipidemia, unspecified; Z79.84 Long term (current) use of oral hypoglycemic drugs; Z86.79 Personal history of other diseases of the circulatory system; Z85.51 Personal history of malignant neoplasm of bladder
CPT/HCPCS: 99283

== ENCOUNTER 2016-10-22 19:18 | Emergency (ER) | payer BC ==
[~2016-10-22] VITALS: Ht 142.2 cm; Wt 73.0 kg
[~2016-10-22 19:18] MED LIST changes: +AMBI10TA PO; -VANC250C2 PO
[2016-10-22 19:22] VITALS: BP 132/74; PULSE 104; RESP 20; TEMP 97.4; O2SAT 98
--- NOTE | 2016-10-22 19:48 | PD ---
HPI Chief Complaint: Complaint Time Seen by Provider: 19:25 Travel History International Travel<30 days: No Contact w/Intl Traveler<30days: No Traveled to known affect area: No History of Present Illness HPI Patient is 76-year-old female with history of urinary retention followed by urologist and male as well as urologist closed by presents emergency department with inability to urinate or sensory are fully catheter was removed at the [facility] today. Patient states that no one has been able throughout why she intermittently retained urine. She denies any pain just feeling discomfort in the suprapubic region. Denies back pain. She states her last attempted urination was 30 minutes ago and just a few drops. She called her urologist to [facility] and recommended she come to the emergency department have a repeat Nichols catheter placed. She does have an appointment with her urologist to his local tomorrow. Denies any fever denies any nausea vomiting denies any diarrhea constipation or any opiate medication use. 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) Endocrine: No Gastrointestinal Disorders: No Genitourinary: Yes (URINARY RETERNTION) Heparin Induced Thrombocytopen: No Hypertension: Yes Immune Disorder: No Implanted Vascular Access Dvce: No Musculoskeletal: No Neurologic: No Psychiatric: No Reproductive: No Respiratory: No Radiation Therapy: No Sickle Cell Disease: No Sleep Apnea: No Thyroid Disease: No Tetanus Vaccination: Unknown Influenza Vaccination: No ?: Not : 4 Para: 3 Miscarriage: 3 Past Surgical History Abdominal Surgery: Yes AICD: No Appendectomy: Yes Arteriovenous Shunt: No Cardiac Surgery: No Endocrine Surgery: No Eye Surgery: No Genitourinary Surgery: Yes (CYSCOSOPY) Gynecologic Surgery: Yes (right mastectomy) Insulin Pump: No Joint Replacement: No Neurologic Surgery: No Oral Surgery: No Pacemaker: No Thoracic Surgery: No Other Surgery: No Social History Alcohol Use: No Tobacco Use: No (QUIT 1957) Substance Use: No Allergies-Medications (Allergen,Severity, Reaction): Coded Allergies: Sulfa (Verified Allergy, Unknown, 10/22/16) Reported Meds & Prescriptions Reported Meds & Active Scripts Active Reported Ambien (Zolpidem Tartrate) 10 Mg Tab 10 Mg PO HS PRN Nifedipine ER 24 HR (Nifedipine) 60 Mg Tab 1 Tab PO DAILY Vitamin D (Cholecalciferol) 400 Unit Cap Simvastatin 40 Mg Tab 40 Mg PO HS Losartan-Hydrochlorothiazide 100-12.5 Mg Tab 1 Tab PO DAILY Glimepiride 2 Mg Tab 2 Mg PO DAILY Take with breakfast or first main meal Fenofibrate Micronized 130 Mg Cap 130 Mg PO DAILY Alprazolam 0.5 Mg Tab 0.5 Mg PO Q8H PRN Review of Systems Except as stated in HPI: all other systems reviewed are Neg Physical Exam Narrative GENERAL: Well-developed well-nourished no obvious distress SKIN: Focused skin assessment warm/dry. HEAD: Atraumatic. Normocephalic. EYES: Pupils equal and round. No scleral icterus. No injection or drainage. ENT: No nasal bleeding or discharge. Mucous membranes pink and moist. NECK: Trachea midline. No JVD. CARDIOVASCULAR: Regular rate and rhythm. No murmur appreciated. RESPIRATORY: No accessory muscle use. Clear to auscultation. Breath sounds equal bilaterally. GASTROINTESTINAL: Abdomen soft, non-tender, nondistended. Hepatic and splenic margins not palpable. MUSCULOSKELETAL: No obvious deformities. No clubbing. No cyanosis. No edema. NEUROLOGICAL: Awake and alert. No obvious cranial nerve deficits. Motor grossly within normal limits. Normal speech. PSYCHIATRIC: Appropriate mood and affect; insight and judgment normal. Data Data Last Documented VS Vital Signs Date Time Temp Pulse Resp B/P Pulse Ox O2 Delivery O2 Flow Rate FiO2 10/22/16 21:00 90 18 104/55 95 Room Air 10/22/16 19:22 97.4 Orders Urinalysis - C+S If Indicated (10/22/16 19:33) Ed Poc Ultrasound (10/22/16 ) Urinary Catheter Management [id number] (10/22/16 19:48) Urine Culture (10/22/16 20:00) Labs Laboratory Tests Test 10/22/16 20:00 Urine Collection Type CATH Urine Color YELLOW Urine Turbidity CLEAR Urine pH 5.5 Urine Specific [place] 1.020 Urine Protein TRACE mg/dL Urine Glucose (UA) NEG mg/dL Urine Ketones NEG mg/dL Urine Occult Blood LARGE Urine Nitrite NEG Urine Bilirubin NEG Urine Leukocyte Esterase MOD Urine RBC 4-9 /hpf Urine WBC 25-49 /hpf Urine WBC Clumps MOD Urine Squamous Epithelial 0-5 /hpf Cells Urine Bacteria OCC /hpf Microscopic Urinalysis Comment CATH-CULTURE IND MDM Medical Decision Making Medical Screen Exam Complete: Yes Emergency Medical Condition: Yes Differential Diagnosis Urinary retention, pelvic organ prolapse, neurogenic bladder, cauda equina syndrome unlikely. Narrative Course Patient taking Macrobid prescribed by [facility]. Patient fully catheter placed yielded 12 cc of urine, this will be left in place and a leg bag placed. Urine culture was sent. She does have follow-up with her urologist tomorrow. She does not have any back pain and certainly I do not have anything to do discussion of why she is retaining urine chronically. She feels much better after her catheter was placed. At This time she is stable for discharge. Procedures Procedure Narrative Bedside ultrasound abdomen: Views were obtained of the bladder for post void residual and shows nearly a liter of urine in the bladder. No free pelvic fluid is seen. Diagnosis Primary Impression: Acute urinary retention Additional Instructions: Follow-up with Dr. Merchant as scheduled tomorrow. Disposition: 01 DISCHARGE HOME Condition: Stable Francisco Brown MD Oct 22, 2016 19:48
[2016-10-22 20:12] LABS: BLOOD, URINE LARGE (NEG); GLUCOSE,URINE NEG (NEG); KETONE, URINE NEG (NEG); NITRITE,URINE NEG (NEG); PH, URINE 5.5 (5.0-8.5)
[2016-10-22 20:19] LABS: METHOD OF COLLECTION CATH; URINE COLOR YELLOW (YELLW/STRAW)
[2016-10-22 20:20] LABS: BACTERIA, URINE OCC /hpf; COMMENT (UR) CATH-CULTURE IND; CULTURE IF INDICATED CATH CULTURE IND; SQUAMOUS EPITHELIAL CELL URINE 0-5 /hpf (0-5)
[2016-10-22 21:00] VITALS: BP 104/55; PULSE 90; RESP 18; O2SAT 95
== END 2016-10-22 21:16 | disposition home or self-care (01) ==
LOC: PHED 19:18
DX: R33.9 Retention of urine, unspecified (principal); E11.9 Type 2 diabetes mellitus without complications; I10 Essential (primary) hypertension; H91.93 Unspecified hearing loss, bilateral; Z79.84 Long term (current) use of oral hypoglycemic drugs; Z86.59 Personal history of other mental and behavioral disorders; Z85.51 Personal history of malignant neoplasm of bladder; Z86.79 Personal history of other diseases of the circulatory system; Z87.448 Personal history of other diseases of urinary system
CPT/HCPCS: 51702; 81001; 87086

== ENCOUNTER 2017-08-10 10:31 | Emergency (ER) | payer BC ==
[~2017-08-10] VITALS: Ht 142.2 cm; Wt 72.0 kg
[2017-08-10 10:36] VITALS: BP 136/59; PULSE 98; RESP 16; TEMP 97.8; O2SAT 97
--- NOTE | 2017-08-10 11:16 | PD ---
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 Patient has history of bladder cancer and has had Gregory catheter in her since last September 2016. She is supposed to go to [facility] tomorrow and get a surgery done. However since last night she says that catheter bag has not been filling with urine. Instead she has the urge to go to the bathroom every 20 minutes and urinates around the catheter. It also has a foul odor to it. No history of fever or chills. No history of abdominal pain , nausea vomiting. Vital signs are stable in triage. Patient is not complaining of any other issues. She is concerned that tomorrow she has to drive to [facility] and she will have to stop every 20 minutes to go to the bathroom. She is not sure if the catheter is plugged or what could the issue be. She has not noticed any blood. No history of dysuria. No history of hematuria. REPLACED BY [facility] Past Medical History Narrative Medical List of her past medical, surgical, social and family history is reviewed from the nursing note Arthritis: No Autoimmune Disease: No Anxiety: Yes Heart Rhythm Problems: No Cancer: Yes ([id number]/ mastectomy 2002) Cardiovascular Problems: Yes (LEAKY VALVE) High Cholesterol: No Chemotherapy: No Chest Pain: No Congestive Heart Failure: No COPD: No Diabetes: Yes Patient Takes Glucophage: Yes Diminished Hearing: Yes (BILAT HEARING AIDS/NEW [place]) Endocrine: No Gastrointestinal Disorders: No Genitourinary: Yes (URINARY RETERNTION) Heparin Induced Thrombocytopen: No Hypertension: Yes Immune Disorder: No Implanted Vascular Access Dvce: No Musculoskeletal: No Neurologic: No Psychiatric: No Reproductive: No Respiratory: No Radiation Therapy: No Sickle Cell Disease: No Sleep Apnea: No Thyroid Disease: No Tetanus Vaccination: > 5 Years Influenza Vaccination: No ?: Not Menopausal: Yes : 4 Para: 3 Miscarriage: 3 Past Surgical History Abdominal Surgery: Yes AICD: No Appendectomy: Yes Arteriovenous Shunt: No Body Medical Devices: gregory cath Cardiac Surgery: No Endocrine Surgery: No Eye Surgery: No Genitourinary Surgery: Yes (CYSCOSOPY) Gynecologic Surgery: Yes (right mastectomy) Insulin Pump: No Joint Replacement: No Neurologic Surgery: No Oral Surgery: No Pacemaker: No Thoracic Surgery: No Other Surgery: No Social History Alcohol Use: No Tobacco Use: No (QUIT 1957) Substance Use: No Allergies-Medications (Allergen,Severity, Reaction): Coded Allergies: Sulfa (Sulfonamide Antibiotics) (Unverified Allergy, Unknown, 08/10/17) Comments List of her allergies reviewed from the nursing note. Reported Meds & Prescriptions Reported Meds & Active Scripts Active Macrobid (Nitrofurantoin Monoh/Nitrofur Macro) 100 Mg Cap 100 Mg PO BID 10 Days Reported Ambien (Zolpidem Tartrate) 10 Mg Tab 10 Mg PO HS PRN Nifedipine ER 24 HR (Nifedipine) 60 Mg Tab 1 Tab PO DAILY Vitamin D (Cholecalciferol) 400 Unit Cap Simvastatin 40 Mg Tab 40 Mg PO HS Losartan-Hydrochlorothiazide 100-12.5 Mg Tab 1 Tab PO DAILY Glimepiride 2 Mg Tab 2 Mg PO DAILY Take with breakfast or first main meal Fenofibrate Micronized 130 Mg Cap 130 Mg PO DAILY Alprazolam 0.5 Mg Tab 0.5 Mg PO Q8H PRN Narrative Medication List of her home medications reviewed from the nursing note. Review of Systems Except as stated in HPI: all other systems reviewed are Neg Genitourinary: Positive: Decreased Urinary Output Physical Exam Narrative GENERAL: Awake, alert, no obvious distress, foul urine odor SKIN: Focused skin assessment warm/dry. HEAD: Atraumatic. Normocephalic. EYES: Pupils equal and round. No scleral icterus. No injection or drainage. ENT: No nasal bleeding or discharge. Mucous membranes pink and moist. NECK: Trachea midline. No JVD. CARDIOVASCULAR: Regular rate and rhythm. No murmur appreciated. RESPIRATORY: No accessory muscle use. Clear to auscultation. Breath sounds equal bilaterally. GASTROINTESTINAL: Abdomen soft, non-tender, nondistended. Hepatic and splenic margins not palpable. MUSCULOSKELETAL: No obvious deformities. No clubbing. No cyanosis. No edema. NEUROLOGICAL: Awake and alert. No obvious cranial nerve deficits. Motor grossly within normal limits. Normal speech. PSYCHIATRIC: Appropriate mood and affect; insight and judgment normal. Data Data Last Documented VS Vital Signs Date Time Temp Pulse Resp B/P (MAP) Pulse Ox O2 Delivery O2 Flow Rate FiO2 08/10/17 12:54 08/10/17 12:18 65 16 97 Room Air 08/10/17 10:36 97.8 Orders Orders Urinary Catheter - Remove (08/10/17 11:21) Insert Temp Sensing Gregory Cath (08/10/17 11:21) Urinalysis - C+S If Indicated (08/10/17 11:21) Urine Culture (08/10/17 11:45) Nitrofurantoin Monohyd Macrocr (Macrobid (08/10/17 12:45) Ed Discharge Order (08/10/17 12:43) Labs Laboratory Tests Test 08/10/17 11:45 Urine Collection Type CATH Urine Color YELLOW Urine Turbidity CLOUDY Urine pH 6.0 Urine Specific [place] 1.010 Urine Protein 30 mg/dL Urine Glucose (UA) NEG mg/dL Urine Ketones NEG mg/dL Urine Occult Blood LARGE Urine Nitrite NEG Urine Bilirubin NEG Urine Urobilinogen 0.2 MG/DL Urine Leukocyte Esterase LARGE Urine RBC 25-49 /hpf Urine WBC 3-5 /hpf Urine WBC Clumps MOD Urine Squamous Epithelial Cells /hpf Urine Transitional Epithelial Cells 0-1 /hpf Urine Bacteria MANY /hpf Microscopic Urinalysis Comment CULTURE INDICATED MDM Medical Decision Making Medical Screen Exam Complete: Yes Emergency Medical Condition: Yes Medical Record Reviewed: Yes Differential Diagnosis Urinary catheter blockage, UTI Narrative Course 11:37 AM I have asked the nurse to remove the Gregory catheter and insert a new catheter. Awaiting for the UA. If her issue resolves this way then she will be discharged. 12:38 PM UA is back and there appears to be a UTI. Have given her dose of Macrobid and a prescription to go home with. The new catheter has been draining well and patient is happy with this. She can be discharged home to be followed up at [facility] tomorrow as per the plan. Procedures EKG Prior to Arrival: No Diagnosis Primary Impression: UTI (urinary tract infection) Qualified Codes: N39.0 - Urinary tract infection, site not specified Additional Impression: Gregory catheter problem Qualified Codes: T83.9XXA - Unspecified complication of genitourinary prosthetic device, implant and graft, initial encounter Additional Instructions: Please continue with your plan to go and see your oncologist at [facility] and have the surgery done. Take the medication as per the prescription direction. Med/Other Pt SpecificInfo: Prescription(s) given Scripts Nitrofurantoin Monohydrate Macrocrystals (Macrobid) 100 Mg Cap 100 MG PO BID for Infection for 10 Days, #20 CAP 0 Refills Prov: Aura Ballard MD 08/10/17 Disposition: 01 DISCHARGE HOME Condition: Stable Aura Ballard MD August 10, 2017 11:16
[2017-08-10 12:08] LABS: BILIRUBIN, URINE NEG (NEG); BLOOD, URINE LARGE (NEG); GLUCOSE,URINE NEG (NEG); KETONE, URINE NEG (NEG); NITRITE,URINE NEG (NEG); URINE COLOR YELLOW (YELLW/STRAW); URINE LEUKOCYTE ESTERASE LARGE (NEG)
[2017-08-10 12:18] VITALS: BP 110/60; PULSE 65; RESP 16; O2SAT 97
[2017-08-10 12:27] LABS: WHITE BLOOD CELL CLUMPS MOD
[2017-08-10 12:28] LABS: BACTERIA, URINE MANY /hpf; TRANSITIONAL EPI CELLS, URINE 0-1 /hpf
[2017-08-10] MEDS ORDERED: MACR100C2 PO (12:40)
[2017-08-10] MEDS ORDERED: NITROFURANTOIN MONOHYD MACROCR 100 MG CAP PO ONE (12:45)
== END 2017-08-10 13:02 | disposition home or self-care (01) ==
LOC: PHED 10:31
DX: N39.0 Urinary tract infection, site not specified (principal); B96.20 Unspecified Escherichia coli [E. coli] as the cause of diseases classified elsewhere; T83.9XXA Unspecified complication of genitourinary prosthetic device, implant and graft, initial encounter; E11.9 Type 2 diabetes mellitus without complications; F41.9 Anxiety disorder, unspecified; I10 Essential (primary) hypertension; Z85.51 Personal history of malignant neoplasm of bladder; Z87.891 Personal history of nicotine dependence
CPT/HCPCS: 51702; 81001; 87077; 87086; 87186